=== PATIENT | male | born 1990 | race Caucasian/White ===

== ENCOUNTER → 2022-08-18 | Outpatient (CLI) | payer BC, SELFPAY ==
[2022-08-18 07:26] LABS: Absolute Lymphocyte Count 3.19 X10^3/uL (0.83-4.51); Absolute Neutrophil Count 4.1 X10^3/uL (2.0-7.7); Basophil# 0.04 X10^3/uL; Basophil% 0.5 % (0-1); Eosinophil# 0.29 X10^3/uL; Eosinophils% 3.5 % (0-5); Hematocrit 45.3 % (40-54); Hemoglobin 15.5 g/dL (13.0-16.5); Lymphocyte # 3.19 X10^3/ul (0.83-4.51); Lymphocyte % 38.7 % (19-41); Mean Corp Hgb Conc 34.2 g/dL (32-36); Mean Corpuscular Hgb 29.8 pg (27.0-32.0); Mean Corpuscular Volume 86.9 fL (80-94); Mean Platelet Vol. 10.2 fl (6.2-12.0); Monocyte# 0.66 X10^3/uL; NRBC Flagged by Analyzer 0 % (0-5); Neutrophil # 4.05 X10^3/uL (2.7-7.7); Neutrophil % 49.1 % (47-70); Platelet Count 246 K/mm3 (150-450); RBC Distribution Width CV 12.7 % (11.6-14.6); RBC Distribution Width SD 39.8 fl (35.1-43.9); Red Blood Count 5.21 M/mm3 (4.6-6.2); White Blood Count 8.3 K/mm3 (4.4-11.0)
[2022-08-18 07:54] LABS: ALB/GLOB Ratio 1.1 RATIO (0.9-2.4); AST(SGOT) 22 U/L (15-37); Alanine Aminotransfer ALT/SGPT 49 U/L (16-61); Albumin, Serum 3.8 g/dL (3.2-5.0); Alkaline Phosphatase 56 U/L (45-117); Anion Gap 7 (5-15); BUN 19 mg/dL (7-18); BUN/Creat Ratio 18.1 RATIO (10-20); Chloride 105 mmol/L (98-107); Cholesterol 266 mg/dL (200); Creatinine, Serum 1.05 mg/dL (0.70-1.30); EST Glomerular Filtration Rate 86 mL/min (>60); Est Glom Filt Rate - Afr Amer 104 mL/min (>60); Globulin 3.4 g/dL (2.2-4.2); Glucose 96 mg/dL (74-106); High Density Lipoprotein 37 mg/dL; Protein, Total 7.2 g/dL (6.4-8.2); Sodium Level 140 mmol/L (136-145); Thyroid Stim Hormone (TSH) 0.82 uIU/mL (0.358-3.74); Triglycerides 190 mg/dL; Very Low Density Lipoprotein 38 mg/dL (5-40)
== END | disposition home or self-care (01) ==
PROVIDERS: PCP Family Medicine; Referring Provider Family Medicine; Visit Provider Family Medicine
DX: E66.9 Obesity, unspecified (principal)
CPT/HCPCS: 36415; 80053; 80061; 84443; 85025

== ENCOUNTER → 2022-09-26 | Outpatient (CLI) | payer BC, SELFPAY ==
--- NOTE | 2022-09-26 13:47 | ECHOD_ITS ---
Version 2 Reason For Study: Congenital Heart Disease Procedure This was a 2D Doppler, Color Flow transthoracic echocardiogram. Exam performed in department. Left Ventricle Normal LV size. Small high muscular VSD noted. Left ventricular systolic function is normal. The estimated ejection fraction is 60 %. No regional wall motion abnormalities noted. Right Ventricle Normal RV size. Normal systolic function. Atria Normal left atrium. Normal right atrium. Mitral Valve Normal mitral valve. Tricuspid Valve Normal tricuspid valve. Mild tricuspid valve insufficiency. Pulmonary artery systolic pressure is 20 mmHg. Aortic Valve Trisinus/trileaflet aortic valve. Pulmonic Valve Normal pulmonic valve. Great Vessels Normal aortic root. The pulmonary artery is normal size. Normal inferior vena cava. Pericardium/Pleural No pericardial effusion. MMode/2D Measurements & Calculations LVIDd: 5.0 cm IVSd: 0.96 cm Ao root diam: 3.9 cm LVIDs: 3.3 cm LVPWd: 0.79 cm LA dimension: 3.8 cm RVDd: 4.1 cm FS: 33.7 % LAV(MOD-bp): 63.7 ml LA A4 area: 20.1 cm2 RA A4 area: 20.7 cm2 LAV(MOD-bp) Indexed: 26.4 ml/m2 LAV(MOD-sp2): 63.8 ml LAV(MOD-sp4): 51.0 ml Time Measurements MV dec time: 0.21 sec Doppler Measurements & Calculations MV E max luis: 60.4 cm/sec Lat Peak E' Luis: 16.9 cm/sec Med Peak E' Luis: 9.2 cm/sec MV A max luis: 47.9 cm/sec E/E' lat: 3.6 E/E' med: 6.5 MV E/A: 1.3 MV V2 max: 65.0 cm/sec MV dec slope: 294.1 cm/sec2 Ao V2 max: 106.6 cm/sec MV max P.7 mmHg Ao max P.5 mmHg MV V2 mean: 34.4 cm/sec Ao V2 mean: 73.9 cm/sec MV mean P.57 mmHg Ao mean P.5 mmHg MV V2 VTI: 19.7 cm Ao V2 VTI: 23.4 cm AV (velocity ratio): 0.67 LV V1 max: 73.3 cm/sec PA V2 max: 110.8 cm/sec TR max luis: 199.7 cm/sec LV V1 max P.1 mmHg TR max P.0 mmHg LV V1 mean P.2 mmHg LV V1 mean: 50.0 cm/sec LV V1 VTI: 15.5 cm ECHO/Echo Complete Interpretation Summary Normal LV size. Left ventricular systolic function is normal. The estimated ejection fraction is 60 %. Small high muscular VSD noted Unchanged from previous. Ordering Physician: Quentin Montano Referring Physician: Tavon Hendrix Performed By: Tyler Richard RCS
== END | disposition home or self-care (01) ==
LOC: CVS 13:46
PROVIDERS: PCP Family Medicine; Visit Provider Internal Medicine Cardiovascular Disease
DX: Q21.0 Ventricular septal defect (principal)
CPT/HCPCS: 93306

== ENCOUNTER → 2023-02-13 | Outpatient (CLI) | payer BC, SELFPAY ==
[2023-02-13 10:13] LABS: ALB/GLOB Ratio 1.1 RATIO (0.9-2.4); AST(SGOT) 23 U/L (15-37); Alanine Aminotransfer ALT/SGPT 59 U/L (16-61); Albumin, Serum 3.9 g/dL (3.2-5.0); Alkaline Phosphatase 64 U/L (45-117); Anion Gap 4 (5-15); BUN 10 mg/dL (7-18); BUN/Creat Ratio 8.6 RATIO (10-20); Calcium,Total 9.1 mg/dL (8.5-10.1); Chloride 106 mmol/L (98-107); Cholesterol 223 mg/dL (200); Creatinine, Serum 1.16 mg/dL (0.70-1.30); EST Glomerular Filtration Rate 76 mL/min (>60); Est Glom Filt Rate - Afr Amer 93 mL/min (>60); Globulin 3.7 g/dL (2.2-4.2); Glucose 114 mg/dL (74-106); High Density Lipoprotein 31 mg/dL; Potassium 4.3 mmol/L (3.5-5.1); Protein, Total 7.6 g/dL (6.4-8.2); Sodium Level 138 mmol/L (136-145); Triglycerides 234 mg/dL; Very Low Density Lipoprotein 47 mg/dL (5-40)
== END | disposition home or self-care (01) ==
PROVIDERS: PCP Family Medicine; Referring Provider Family Medicine; Visit Provider Family Medicine
DX: E78.5 Hyperlipidemia, unspecified (principal)
CPT/HCPCS: 36415; 80053; 80061

== ENCOUNTER → 2023-08-19 | Outpatient (CLI) | payer OTHER, SELFPAY ==
--- OUTSIDE RECORDS SUMMARY | 2023-05-22 07:49 | XMS RPT_ITS | CCD ---
Author Name Unknown Address [facility] [address] [place] [address] Organization [facility] Care Team Providers Care General Magistrate Name Role Phone Unavailable Primary Care Provider URMILA Le Referring Unavailable Medications Completed/Discontinued Medications Medication Drug Class(es) Dates Sig (Normalized) Sig (Original) rosuvastatin calcium 20 mg oral tablet (2 sources) HMG-CoA Reductase Inhibitor Start: 01-08-2023 take 2 tablets by mouth once rosuvastatin (CRESTOR) 20 mg tablet Take 2 tablets by mouth every afternoon. 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 Phone: [facility] Plan of Treatment Date Care Activity Detail Author Start: 03-13-2023 Covid-19 Vaccine ( season) Covid-19 Vaccine ( season) [facility] Start: 03-13-2023 Influenza vaccination Influenza Vacc ine (#1) [facility] Start: 07-13-2022 Depression Assessment Depression Ass essment [facility] Start: 10-04-2007 Urine microalbumin profile DTa P,Tdap,Td Vaccine (1 - Tdap) [facility] Start: 1990 Hepatitis B Vaccine (1 of 3 - 3-dose series) Hepatitis B Vaccine (1 of 3 - 3-dose series) [facility] Immunizations Immunization Date Immunization Notes Care Provider Partha phillips 07-27-2009 influenza virus vaccine, unspecified formulation Urmila Andrade APRN.CNP Work Phone: [facility] Payers Date Payer Category Payer Unknown [employer] BLUE CARD PPO OOS [id number] 2022-Present [phone] [address] [place] [address] PPO [id number] 2022 Unknown [id number] Social History Date Type Detail Facility Start: 04-21-2023 Tobacco smoking stat us MNIS Never smoked tobacco [facility] Start: 04-21-2023 Tobacco use and exposure Smoke less tobacco non-user [facility] Start: 04-21-2023 History of Social function [facility] Start: 04-21-2023 Tobacco use panel [facility] Start: 1990 Sex Assigned At Male [facility] Start: 04-21-2023 Gender identity Identifies as male gender (finding) [facility] Start: 04-21-2023 Sexual orientation Heterosexual (fin ding) [facility] Note 04-22-2023 Telephone Encounter - Lorna Franco - 04/22/2023 12:49 PM EDTTelephone Encounter - Urmila Andrade APRN.CNP - 04/22/2023 12:09 PM EDT Note Date & Type Note Facility 04-22-2023 Miscellaneous Notes Formattin g of this note might be different from the original. Patient given results and verbalized understanding of instructions given. Lorna Franco Gonorrhea chlamydia test negative. documented in this encounter [facility] Note 04-22-2023 Telephone Encounter - Lorna Franco - 04/22/2023 11:50 AM EDTTelephone Encounter - Urmila Andrade APRN.CNP - 04/22/2023 11:16 AM EDT Note Date & Type Note Facility 04-22-2023 Miscellaneous Notes Formattin g of this note might be different from the original. Patient given results and verbalized understanding of instructions given. Lorna Franco Syphilis HIV hepatitis test are negative. Gonorrhea chlamydia test still pending. Urmila Andrade APRN.CNP documented in this encounter [facility] Progress note 04-21-2023 Note Date & Type Note Facility 04-21-2023 Note HNO ID: [id number] Author: Urmila Andrade APRN.CNP Service: ? Author Type: Nurse Practitioner Type: Progress Notes Filed: 04/21/2023 4:16 PM Note Text: Subjective HPI Nontoxic-appearing male presents urgent care requesting STD testing. Patient states he is getting in a few weeks and would like tested for STDs prior to her wedding date. Patient states he has been sexually active but it has been about 8 years ago. Is currently asymptomatic. Denies history of STDs. Denies any testicular pain penile drainage scrotal tenderness rashes. Overall feels well. Past medical history prescription medication use allergies reviewed. .Patient presents with: STD Testing: Requesting testing to be safe, new sex partner History reviewed. No pertinent past medical history. History reviewed. No pertinent surgical history. ALLERGIES Patient has no known allergies. MEDICATIONS rosuvastatin (CRESTOR) 20 mg tablet Take 2 tablets by mouth every afternoon. History reviewed. No pertinent family history. Social History Tobacco Use Smoking status: Never Smokeless tobacco: Never BP 145/96 Pulse 73 Temp 36.6 ?C (97.8 ?F) Resp 18 Wt 127.3 kg (280 lb 9.6 oz) SpO2 98% Review of Systems Constitutional: Negative for chills, fever and malaise/fatigue. HENT: Negative for congestion, ear discharge, ear pain, sinus pain and sore throat. Eyes: Negative for blurred vision, pain, discharge and redness. Respiratory: Negative for cough, hemoptysis, sputum production, shortness of breath, wheezing and stridor. Cardiovascular: Negative for chest pain. Gastrointestinal: Negative for abdominal pain, diarrhea, nausea and vomiting. Genitourinary: Negative. Musculoskeletal: Negative for myalgias. Skin: Negative for itching and rash. Neurological: Negative for dizziness and headaches. Objective Physical Exam Constitutional: General: He is not in acute distress. Appearance: He is not toxic-appearing. HENT: Head: Normocephalic. Nose: Nose normal. Eyes: Pupils: Pupils are equal, round, and reactive to light. Cardiovascular: Rate and Rhythm: Normal rate. Pulmonary: Effort: Pulmonary effort is normal. No respiratory distress. Abdominal: Tenderness: There is no abdominal tenderness. There is no right CVA tenderness, left CVA tenderness or guarding. Genitourinary: Comments: Deferred exam Musculoskeletal: Cervical back: Normal range of motion. Skin: General: Skin is warm and dry. Neurological: General: No focal deficit present. Mental Status: He is alert. ASSESSMENT/PLAN: 1. Screening for STD (sexually transmitted disease) - ICD9: V74.5, ICD10: Z11.3 - GONORRHEA/CHLAMYDIA NAAT - SYPHILIS TOTAL W/REFLEX - HIV 1 2 COMBO(AG/AB),WITH REFLEX TO DIFFERENTIATION - HEPATITIS C ANTIBODY IA WITH CONFIRMATION - HEP B SURF AG SCRN STD panel obtained. Treat accordingly to test. Patient was educated on supportive therapies. Patient will follow up with primary care provider as needed. Patient was instructed to immediately proceed to emergency room for any new, worsening, or symptoms lasting longer than anticipated. The patient's clinical presentation is otherwise unremarkable at this time. Based on exam and clinical finding, the patient is stable for discharge. Plan of care was discussed with patient. Patient verbalizes understanding and agrees to plan of care. This note was generated using [employer] software. It may contain errors in wording, punctuation, or spelling. Urmila Andrade APRN.[facility] Summary Purpose Family History No Family History Records Found Advance Directives No Advanced Directives Records Found Additional Source Comments Source Comments (unrecognize d section and content) In the event this informatio n is protected by the Federal Confidentiality of Alcohol and Drug Abuse Patient Records regulations: The Federal rules restrict any use of the information to criminally investigate or prosecute any alcohol or drug abuse patient.[facility] Reason for Visit (unrecogniz ed section and content) (unrecognized sect ion and content) No Status Records Found INFORMATION SOURCE (unrecogn ized section and content) FOR RECORDS PERTAINING TO PATIENTS WHO ARE OR HAVE BEEN ENROLLED IN A CHEMICAL DEPENDENCY/SUBSTANCEABUSE PROGRAM, SOME INFORMATION MAY BE OMITTED. This clinical summary was aggregated from multiple sources. Caution should be exercised in using it in the provision of clinical care. This summary normalizes information from multiple sources, and as a consequence, information in this document may materially change the coding, format and clinical context of patient data. In addition, data may be omitted in some cases. CLINICAL DECISIONS SHOULD BE BASED ON THE PRIMARY CLINICAL RECORDS. [facility]. provides no warranty or guarantee of the accuracy or completeness of information in this document.
--- OUTSIDE RECORDS SUMMARY | 2023-08-19 09:07 | XMS RPT_ITS | CCD ---
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 Work Phone: [facility] Plan of Treatment Date Care Activity Detail Author Start: 03-13-2023 Covid-19 Vaccine ( season) Covid-19 Vaccine ( season) [facility] Start: 03-13-2023 Influenza vaccination Influenza Vacc ine (#1) [facility] Start: 07-13-2022 Depression Assessment Depression Ass essment [facility] Start: 10-04-2007 Urine microalbumin profile DTa P,Tdap,Td Vaccine (1 - Tdap) [facility] Start: 1990 Hepatitis B Vaccine (1 of 3 - 3-dose series) Hepatitis B Vaccine (1 of 3 - 3-dose series) [facility] Immunizations Immunization Date Immunization Notes Care Provider Partha phillips 07-27-2009 influenza virus vaccine, unspecified formulation Urmila Andrade APRN.CNP Work Phone: [facility] Payers Date Payer Category Payer Unknown MARIA ELENA BLUE CARD PPO OOS [id number] 2022-Present [phone] [address] [place] [address] PPO [id number] 2022 Unknown [id number] Social History Date Type Detail Facility Start: 04-21-2023 Tobacco smoking stat us MSIS Never smoked tobacco [facility] Start: 04-21-2023 Tobacco use and exposure Smoke less tobacco non-user [facility] Start: 04-21-2023 History of Social function [facility] Start: 04-21-2023 Tobacco use panel [facility] Start: 1990 Sex Assigned At Male [facility] Start: 04-21-2023 Gender identity Identifies as male gender (finding) [facility] Start: 04-21-2023 Sexual orientation Heterosexual (fin ding) [facility] Note 04-22-2023 Telephone Encounter - Lorna Franco - 04/22/2023 12:49 PM EDTTelephone Encounter - Urmila Andrade APRN.CNP - 04/22/2023 12:09 PM EDT Note Date & Type Note Facility 04-22-2023 Miscellaneous Notes Formattin g of this note might be different from the original. Patient given results and verbalized understanding of instructions given. Lorna Franco Gonorrhea chlamydia test negative. documented in this encounter [facility] Note 04-22-2023 Telephone Encounter - Lorna Franco [...] Urmila Andrade APRN.CNP documented in this encounter [facility] Progress note 04-21-2023 Note Date & Type Note Facility 04-21-2023 Note HNO ID: [id number] Author: Urmila Andrade APRN.CNP Service: ? Author [...] of care. This note was generated using [employer] software. It may contain errors in wording, punctuation, or spelling. Urmila Andrade APRN.[facility] Summary Purpose Family History No Family History [...] or prosecute any alcohol or drug abuse patient.[facility] Reason for Visit (unrecogniz ed section and [...] BE BASED ON THE PRIMARY CLINICAL RECORDS. [facility]. provides no warranty or guarantee of the accuracy or completeness of information in this document.
[2023-08-19 10:57] LABS: ALB/GLOB Ratio 1.3 RATIO (0.9-2.4); AST(SGOT) 26 U/L (15-37); Alanine Aminotransfer ALT/SGPT 62 U/L (16-61); Albumin, Serum 4.1 g/dL (3.2-5.0); Alkaline Phosphatase 56 U/L (45-117); Anion Gap 1 (5-15); BUN 20 mg/dL (7-18); Calcium,Total 9.3 mg/dL (8.5-10.1); Chloride 107 mmol/L (98-107); Cholesterol 198 mg/dL (200); Creatinine, Serum 1.11 mg/dL (0.70-1.30); EST Glomerular Filtration Rate 81 mL/min (>60); Est Glom Filt Rate - Afr Amer 98 mL/min (>60); Globulin 3.2 g/dL (2.2-4.2); Glucose 110 mg/dL (74-106); High Density Lipoprotein 39 mg/dL; Potassium 4.2 mmol/L (3.5-5.1); Protein, Total 7.3 g/dL (6.4-8.2); Sodium Level 137 mmol/L (136-145); Triglycerides 160 mg/dL; Very Low Density Lipoprotein 32 mg/dL (5-40)
[2023-08-19 11:38] LABS: Hemoglobin A1c 5.2 % (3.8-5.6)
== END | disposition home or self-care (01) ==
PROVIDERS: PCP Family Medicine; Referring Provider Family Medicine; Visit Provider Family Medicine
DX: E78.5 Hyperlipidemia, unspecified (principal); R73.9 Hyperglycemia, unspecified
CPT/HCPCS: 36415; 80053; 80061; 83036

== ENCOUNTER → 2024-04-07 | Outpatient (CLI) | payer BC, SELFPAY ==
[2024-04-07 07:01] LABS: Absolute Lymphocyte Count 3.03 X10^3/uL (0.83-4.51); Absolute Neutrophil Count 4.1 X10^3/uL (2.0-7.7); Basophil# 0.04 X10^3/uL; Basophil% 0.5 % (0-1); Eosinophil# 0.15 X10^3/uL; Eosinophils% 1.9 % (0-5); Hematocrit 43.4 % (40-54); Hemoglobin 14.5 g/dL (13.0-16.5); Lymphocyte # 3.03 X10^3/ul (0.83-4.51); Lymphocyte % 37.9 % (19-41); Mean Corp Hgb Conc 33.4 g/dL (32-36); Mean Corpuscular Hgb 28.5 pg (27.0-32.0); Mean Corpuscular Volume 85.3 fL (80-94); Mean Platelet Vol. 10.3 fl (6.2-12.0); Monocyte# 0.67 X10^3/uL; Monocyte% 8.4 % (0-10); NRBC Flagged by Analyzer 0 % (0-5); Neutrophil # 4.08 X10^3/uL (2.7-7.7); Platelet Count 209 K/mm3 (150-450); RBC Distribution Width CV 13.1 % (11.6-14.6); RBC Distribution Width SD 40.4 fl (35.1-43.9); Red Blood Count 5.09 M/mm3 (4.6-6.2)
[2024-04-07 07:36] LABS: ALB/GLOB Ratio 1.3 RATIO (0.9-2.4); AST(SGOT) 25 U/L (15-37); Alanine Aminotransfer ALT/SGPT 47 U/L (16-61); Albumin, Serum 3.9 g/dL (3.2-5.0); Alkaline Phosphatase 63 U/L (45-117); Anion Gap 4 (5-15); BUN 20 mg/dL (7-18); Calcium,Total 9.1 mg/dL (8.5-10.1); Chloride 107 mmol/L (98-107); Cholesterol 188 mg/dL (200); Creatinine, Serum 1.05 mg/dL (0.70-1.30); EST Glomerular Filtration Rate 85 mL/min (>60); Est Glom Filt Rate - Afr Amer 103 mL/min (>60); Globulin 3.1 g/dL (2.2-4.2); Glucose 102 mg/dL (74-106); High Density Lipoprotein 37 mg/dL; Sodium Level 140 mmol/L (136-145); Triglycerides 221 mg/dL; Very Low Density Lipoprotein 44 mg/dL (5-40)
[2024-04-07 08:55] LABS: Hemoglobin A1c 5.4 % (3.8-5.6)
== END | disposition home or self-care (01) ==
LOC: LAB 06:07
PROVIDERS: PCP Family Medicine; Referring Provider Family Medicine; Visit Provider Family Medicine
DX: E78.5 Hyperlipidemia, unspecified (principal); R73.09 Other abnormal glucose
CPT/HCPCS: 36415; 80053; 80061; 83036; 85025

== ENCOUNTER → 2024-10-04 | Outpatient (CLI) | payer OTHER, SELFPAY ==
[2024-10-04 12:21] LABS: Hemoglobin A1c 5.3 % (<=5.6)
[2024-10-04 15:00] LABS: Cholesterol 265 mg/dL (<=200); High Density Lipoprotein 36 mg/dL; Low Density Lipoprotein Calc. 178 mg/dL; Triglycerides 257 mg/dL; Very Low Density Lipoprotein 51 mg/dL (5-40); cholesterol:hdl ratio screen 7.38
[2024-10-04 15:04] LABS: ALB/GLOB Ratio 1.7 RATIO (0.9-2.4); AST(SGOT) 38 U/L (<=37); Alanine Aminotransfer ALT/SGPT 62 U/L (<=46); Albumin, Serum 4.3 g/dL (3.5-5.0); Alkaline Phosphatase 60 U/L (40-129); Anion Gap 10 (5-15); BUN 13 mg/dL (4-19); BUN/Creat Ratio 12.5 RATIO (10-20); Calcium,Total 9.4 mg/dL (7.6-11.0); Carbon Dioxide 26.3 mmol/L (21.0-32.0); Chloride 105 mmol/L (98-108); Creatinine, Serum 1.03 mg/dL (0.70-1.20); EST Glomerular Filtration Rate 97 (>60); Globulin 2.6 g/dL (2.2-4.2); Glucose 107 mg/dL (70-99); Potassium 4.4 mmol/L (3.3-5.1); Protein, Total 6.8 g/dL (5.9-8.4); Sodium Level 141 mmol/L (133-145); Total Bilirubin 0.52 mg/dL (0.00-1.30)
[2024-10-05 23:25] LABS: Hepatitis B Surface Antibody Nonreactive; Hepatitis B Surface Antigen Nonreactive (Nonreactive); Hepatitis C Antibody Nonreactive (Nonreactive)
== END | disposition home or self-care (01) ==
LOC: LAB 07:01
PROVIDERS: PCP Family Medicine; Referring Provider Family Medicine; Visit Provider Family Medicine
DX: E78.5 Hyperlipidemia, unspecified (principal); R73.09 Other abnormal glucose
CPT/HCPCS: 36415; 80053; 80061; 83036; 86706; 86803; 87340

== ENCOUNTER → 2025-03-16 | Outpatient (CLI) | payer OTHER, SELFPAY ==
[2025-03-16 09:25] LABS: Hematocrit 46.3 % (40-54); Hemoglobin 15.8 g/dL (13.0-16.5); Immature Granulocytes Count 0.020 X10^3/uL (0.0-0.0); Mean Corp Hgb Conc 34.1 g/dL (32-36); Mean Corpuscular Volume 84.5 fL (80-94); Mean Platelet Vol. 10.4 fl (6.2-12.0); NRBC Flagged by Analyzer 0 % (0-5); Platelet Count 224 K/mm3 (150-450); RBC Distribution Width CV 12.7 % (11.6-14.6); RBC Distribution Width SD 38.7 fl (35.1-43.9); Red Blood Count 5.48 M/mm3 (4.6-6.2); White Blood Count 7.7 K/mm3 (4.4-11.0)
[2025-03-16 11:09] LABS: AST(SGOT) 42 U/L (<=37); Alanine Aminotransfer ALT/SGPT 77 U/L (<=46); Albumin, Serum 4.5 g/dL (3.5-5.0); Alkaline Phosphatase 76 U/L (40-129); Anion Gap 13 (5-15); BUN 14 mg/dL (4-19); BUN/Creat Ratio 13.1 RATIO (10-20); Calcium,Total 9.6 mg/dL (7.6-11.0); Carbon Dioxide 23.2 mmol/L (21.0-32.0); Chloride 105 mmol/L (98-108); Cholesterol 219 mg/dL (<=200); Globulin 2.7 g/dL (2.2-4.2); Glucose 105 mg/dL (70-99); Hepatitis B Surface Antigen Nonreactive (Nonreactive); Hepatitis C Antibody Nonreactive (Nonreactive); Low Density Lipoprotein Calc. 145 mg/dL; Potassium 4.2 mmol/L (3.3-5.1); Triglycerides 189 mg/dL; Very Low Density Lipoprotein 38 mg/dL (5-40); cholesterol:hdl ratio screen 6.07
== END | disposition home or self-care (01) ==
LOC: LAB 08:41
PROVIDERS: PCP Family Medicine; Referring Provider Family Medicine; Visit Provider Family Medicine
DX: E78.5 Hyperlipidemia, unspecified (principal); R73.09 Other abnormal glucose
CPT/HCPCS: 36415; 80053; 80061; 83036; 85025; 86706; 86803; 87340

== ENCOUNTER → 2025-06-02 | Outpatient (CLI) | payer OTHER, SELFPAY ==
--- NOTE | 2025-06-02 07:18 | US_ITS ---
PROCEDURE: ABD LIMITED W/ ELASTOGRAPHY REASON FOR EXAM: ELEVATED LFT'S COMPARISON: None. TECHNIQUE: Procedure Code: [id number] Modality: US Procedure: ABD LIMITED W/ ELASTOGRAPHY Right upper quadrant abdominal ultrasound. [facility]ga Elast[facility] shear wave elastography for non-invasive assessment of liver tissue stiffness. Olga EPIQ Elite. FINDINGS: LIVER: Size: Borderline hepatomegaly. Length: 17.3 cm Echotexture: Diffusely echogenic suggesting fatty infiltration Contour: Normal Lesions: None identified Elastography: EQI Med: 6.9 kPa EQI Med Luis: 1.51 m/s IQR/Med: 9 %* GALLBLADDER: Normal COMMON BILE DUCT: Normal measuring 3.2 mm. . PANCREAS: Normal Visualized portions of the right kidney are unremarkable. No right upper quadrant ascites. US/ABD Limited w/ Elastography IMPRESSION: Mild to moderate hepatic fibrosis. Fatty infiltration of the liver. Borderline hepatomegaly. Reference Values: SRU <1.37 m/s (5.7kPa): No to mild fibrosis 1.37 m/s - 2.2 m/s: Moderate to severe fibrosis >2.2 m/s (15kPa): Significant fibrosis / cirrhosis METAVIR Score F2 or higher: 1.34 m/s (5.7kPa) F3 or higher: 1.55 m/s (7.3kPa) F4: 1.80 m/s (10kPa) * If the IQR/Med is >30%, the variance in the measurements is a large and the a ccuracy of the measurement may be in question. Reading Location: [facility]
--- OUTSIDE RECORDS SUMMARY | 2025-06-02 07:38 | XMS RPT_ITS | CCD ---
Author Organization [facility] Care Team Providers Care Head Of Maintenance Name Role Phone Dr. Tavon Hendrix Primary Care Provider Phyllis Mendoza Attending Provider Dr. Tavon Gonzalez Primary Care Provider Phyllis Mendoza Attending Provider Dr. Tavon Gonzalez Referring Provider Dr. Quentin Montano Attending Provider Unavailable Primary Care Provider UnavailURMILA Kirkpatrick Referring Unavailable Dr. Tavon Hendrix MD Primary Care Provider [phone] Dr. Tavon Hendrix MD Attending Provider Dr. Tavon Hendrix MD Referring Provider Dr. Tavon Hendrix MD Primary Care Physician Dr. Tavon Hendrix MD Attending Physician Dr. Tavon Hendrix MD Referring Provider Tavon Hendrix Referring Unavailable Tavon Hendrix Attending Unavailable Tavon Hendrix Primary Care Unavailable Tavon Hendrix Referring Unavailable Tavon Hendrix Attending Unavailable Tavon Hendrix Primary Care Unavailable Tavon Hendrix Referring Unavailable Tavon Hendrix Attending Unavailable Tavon Hendrix Primary Care Unavailable Tavon Hendrix Referring Unavailable Quentin Montano Attending Unavailable Tavon Hendrix Primary Care Unavailable Medications Current Medications Medication Drug Class(es) Dates Sig (Normalized) Sig (Original) atorvastatin 20 mg oral tablet (1 source) HMG-CoA Reductase Inhibitor Start: 05-22-2025 take 1 tablet by mouth at bedtime Completed/Discontinued Medications Medication Drug Class(es) Dates Sig (Normalized) Sig (Original) rosuvastatin calcium 20 mg oral tablet (10 sources) HMG-CoA Reductase Inhibitor Start: 10-02-2023 End: 12-01-2024 take 2 tablets by mouth once daily Rosuvastatin 20 mg tablet Discontinued 40 mg PO DAILY October 02, 2023 8:47am December 01, 2024 12:11pm Start: 01-08-2023 take 2 tablets by mouth once r osuvastatin (CRESTOR) 20 mg tablet Take 2 tablets by mouth every afternoon. 0 01/08/2023 Active Start: 08-29-2022 End: 10-02-2023 take 1 tablet by mouth once daily Rosuvastatin 20 mg tablet Discontinued 20 mg PO DAILY August 29, 2022 1:00am October 02, 2023 8:47am Comment on above: Take 2 tablets by mo uth every afternoon. 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) Ventricular septal defect; Translations: [Ventricular septal defect] 08-28-2022 Chronic Disorders of lipid metabolism (8 sources) Hyperlipidemia; Translations: [Hyperlipidemia, unspecified] Onset: 03-31-2025 08-29-2022 Chronic Immunizations and screening for infectious disease (1 source) Encounter for screening for infections with a predominantly sexual mode of transmission; Translations: [Screening for STD (sexually transmitted disease)] Onset: 04-21-2023 Episodic Other screening for suspected conditions (not mental disorders or infectious disease) (1 source) Other specified abnormal findings of blood chemistry; Translations: [Other specified abnormal findings of blood chemistry] Onset: 05-18-2025 Episodic Results Test Name Value Interpretation Reference Range Facil y Absolute lymphocyte countOrd ered By: Tavon Hendrix on 03-16-2025 Lymphocytes Auto (Unsp spec) [#/Vol] 2.73 10*3/uL 0.83-4.51 [facility] Absolute neutrophil countOrd ered By: Tavon Hendrix on 03-16-2025 Neutrophils (Bld) [#/Vol] 4.0 10*3/uL 2.0-7.7 [facility] Anion gap in Serum or Plasma Ordered By: Tavon Hendrix on 03-16-2025 Anion gap [Moles/Vol] 13 mmol/L 5-15 [facility] Automated lymphocyte count a s percentage of total leukocytesOrdered By: Tavon Hendrix on 03-16-2025 Lymphocytes/100 WBC Auto (Unsp spec) 35.3 % 19- [facility] BUN/creatinine ratioOrdered By: Tavon Hendrix on 03-16-2025 Urea nitrogen/Creatinine [Mass ratio] 13.1 mg/mg 10- [facility] Basophil percentageOrdered B y: Tavon Hendrix on 03-16-2025 Basophils/100 WBC (Bld) 0.8 % 0-1 [facility] Bilirubin, totalOrdered By: Tavon Hendrix on 03-16-2025 Bilirubin [Mass/Vol] 0.74 mg/dL 0.00-1.30 [facility] CBC W/Diff, Automatedon Absolute Lymph 2.73 X10 3/uL Normal 0.83-4.51 [facility] Comment on above: Order Comment: Order Date: 10/05/24 Order Info: [id number] - CBCD Performed By: #### L 100.0100, L500.4050, L500.4100, L501.9985 #### [facility] [address] [place], [address] Absolute Neut 4.0 X10 3/uL Normal 2.0-7.7 [facility] Comment on above: Order Comment: Order Date: 10/05/24 Order Info: [id number] - CBCD Performed By: #### L 100.0100, L500.4050, L500.4100, [id number] #### [facility] [address] [place], [address] Basophils/100 WBC (Bld) 0.8 % Normal 0-1 [facility] Comment on above: Order Comment: Order Date: 10/05/24 Order Info: [id number] - CBCD Performed By: #### L 100.0100, L500.4050, L500.4100, [id number] #### [facility] [address] [place], [address] Eosinophils/100 WBC (Bld) 4.1 % Normal 0-5 [facility] Comment on above: Order Comment: Order Date: 10/05/24 Order Info: [id number] - CBCD Performed By: #### L 100.0100, L500.4050, L500.4100, [id number] #### [facility] [address] [place], [address] Erythrocyte distribution width (RBC) [Ratio] 12.7 % Normal 11.6-14.6 [facility] Comment on above: Order Comment: Order Date: 10/05/24 Order Info: [id number] - CBCD Performed By: #### L 100.0100, L500.4050, L500.4100, [id number] #### [facility] [address] [place], [address] Hematocrit (Bld) [Volume fraction] 46.3 % Normal 40-54 [facility] Comment on above: Order Comment: Order Date: 10/05/24 Order Info: 0184-1 - CBCD Performed By: #### L 100.0100, L500.4050, L500.4100, [id number] #### [facility] [address] [place], [address] Hemoglobin (Bld) [Mass/Vol] 15.8 g/dL Normal 13.0-16.5 [facility] Comment on above: Order Comment: Order Date: 10/05/24 Order Info: 0184-1 - CBCD Performed By: #### L 100.0100, L500.4050, L500.4100, L501.9985 #### [facility] [address] [place], [address] IG% 0.300 Normal 0.0-0.9 [facility] Comment on above: Order Comment: Order Date: 10/05/24 Order Info: [id number] - CBCD Result Comment: IG% - Immature Granulocytes (promyelocytes, myelocytes and metamyelocytes) > 1% indicates that a LEFT SHIFT is Present. Performed By: #### L 100.0100, L500.4050, L500.4100, L501.9985 #### [facility] [address] [place], [address] Lymphocytes/100 WBC (Bld) 35.3 % Normal 19-41 [facility] Comment on above: Order Comment: Order Date: 10/05/24 Order Info: 0184-1 - CBCD Performed By: #### L 100.0100, L500.4050, L500.4100, [id number] #### [facility] [address] [place], [address] MCH (RBC) [Entitic mass] 28.8 pg Normal 27.0-32.0 [facility] Comment on above: Order Comment: Order Date: 10/05/24 Order Info: [id number]- - CBCD Performed By: #### L 100.0100, L500.4050, L500.4100, L501.9985 #### [facility] [address] [place], [address] MCHC (RBC) [Mass/Vol] 34.1 g/dL Normal 32-36 [facility] Comment on above: Order Comment: Order Date: 10/05/24 Order Info: [id number] - CBCD Performed By: #### L 100.0100, L500.4050, L500.4100, L501.9985 #### [facility] [address] [place], [address] MCV (RBC) [Entitic vol] 84.5 fL Normal 80-94 [facility] Comment on above: Order Comment: Order Date: 10/05/24 Order Info: 0184-1 - CBCD Performed By: #### L 100.0100, L500.4050, L500.4100, [id number] #### [facility] [address] [place], [address] Monocytes/100 WBC (Bld) 7.9 % Normal 0-10 [facility] Comment on above: Order Comment: Order Date: 10/05/24 Order Info: 0184-1 - CBCD Performed By: #### L 100.0100, L500.4050, L500.4100, L501.9985 #### [facility] [address] [place], [address] Neutrophils/100 WBC (Bld) 51.6 % Normal 47-70 [facility] Comment on above: Order Comment: Order Date: 10/05/24 Order Info: 0184-1 - CBCD Performed By: #### L 100.0100, L500.4050, L500.4100, L501.9985 #### [facility] [address] [place], [address] Nucleated RBC (Bld) [#/Vol] 0 10*3/uL Normal 0-5 [facility] Comment on above: Order Comment: Order Date: 10/05/24 Order Info: [id number] - CBCD Performed By: #### L 100.0100, L500.4050, L500.4100, L501.9985 #### [facility] [address] [place], [address] Platelet mean volume (Bld) [Entitic vol] 10.4 fL Normal 6.2-12.0 [facility] Comment on above: Order Comment: Order Date: 10/05/24 Order Info: [id number] - CBCD Performed By: #### L 100.0100, L500.4050, L500.4100, L501.9985 #### [facility] [address] [place], [address] Platelets (Bld) [#/Vol] 224 10*3/uL Normal 150-450 [facility] Comment on above: Order Comment: Order Date: 10/05/24 Order Info: [id number] - CBCD Performed By: #### L 100.0100, L500.4050, L500.4100, L501.9985 #### [facility] [address] [place], [address] RBC (Bld) [#/Vol] 5.48 10*6/uL Normal 4.6-6.2 [facility] Comment on above: Order Comment: Order Date: 10/05/24 Order Info: [id number] - CBCD Performed By: #### L 100.0100, L500.4050, L500.4100, L501.9985 #### [facility] [address] [place], [address] RDW SD 38.7 fl Normal 35.1-43.9 [facility] Comment on above: Order Comment: Order Date: 10/05/24 Order Info: [id number] - CBCD Performed By: #### L 100.0100, L500.4050, L500.4100, L501.9985 #### [facility] [address] [place], [address] WBC (Bld) [#/Vol] 7.7 10*3/uL Normal 4.4-11.0 [facility] Comment on above: Order Comment: Order Date: 10/05/24 Order Info: [id number] - CBCD Performed By: #### L 100.0100, L500.4050, L500.4100, L501.9985 #### [facility] [address] [place], [address] Calculated very low density lipoprotein (VLDL) cholesterol measurementOrdered By: Tavon Hendrix on 03-16-2025 Calculated very low density lipoprotein (VLDL) cholesterol measurement 38 mg/dL 5-40 [facility] Carbon dioxide, total [Moles /volume] in Central venous bloodOrdered By: Tavon Hendrix on 03-16-2025 CO2 [Moles/Vol] 23.2 mmol/L 21.0-32.0 [facility] Chloride assayOrdered By: Sylvie Hendrix on 03-16-2025 Chloride [Moles/Vol] 105 mmol/L 98-108 [facility] Comprehensive Metabolic Prof ilon 03-16-2025 Albumin [Mass/Vol] 4.5 g/dL Normal 3.5-5.0 [facility] Comment on above: Order Comment: Order Date: 10/05/24 Order Info: [id number] - CMP Order Info: [id number] - LIPID Performed By: #### L 100.0100, L500.4050, L500.4100, L501.9985 #### [facility] [address] [place], [address] Albumin/Globulin [Mass ratio] 1.7 {ratio} Normal 0.9-2.4 [facility] Comment on above: Order Comment: Order Date: 10/05/24 Order Info: [id number]- - CMP Order Info: [id number] - LIPID Performed By: #### L 100.0100, L500.4050, L500.4100, L501.9985 #### [facility] [address] [place], [place], [id number] ALK PHOS 76 U/L Normal 40-129 [facility] Comment on above: Order Comment: Order Date: 10/05/24 Order Info: [id number] - CMP Order Info: [id number] - LIPID Performed By: #### L 100.0100, L500.4050, L500.4100, L501.9985 #### [facility] [address] [place], [address] ALT [Catalytic activity/Vol] 77 U/L High <=46 [facility] Comment on above: Order Comment: Order Date: 10/05/24 Order Info: [id number] - CMP Order Info: [id number] - LIPID Performed By: #### L 100.0100, L500.4050, L500.4100, L501.9985 #### [facility] [address] [place], [address] AST [Catalytic activity/Vol] 42 U/L High <=37 [facility] Comment on above: Order Comment: Order Date: 10/05/24 Order Info: [id number] - CMP Order Info: [id number] - LIPID Performed By: #### L 100.0100, L500.4050, L500.4100, L501.9985 #### [facility] [address] [place], [address] Bilirubin [Mass/Vol] 0.74 mg/dL Normal 0.00-1.30 [facility] Comment on above: Order Comment: Order Date: 10/05/24 Order Info: [id number] - CMP Order Info: [id number] - LIPID Performed By: #### L 100.0100, L500.4050, L500.4100, L501.9985 #### [facility] [address] [place], [address] BUN/CRE 13.1 RATIO Normal 10-20 [facility] Comment on above: Order Comment: Order Date: 10/05/24 Order Info: [id number] - CMP Order Info: [id number] - LIPID Performed By: #### L 100.0100, L500.4050, L500.4100, L501.9985 #### [facility] [address] [place], [address] Calcium [Mass/Vol] 9.6 mg/dL Normal 7.6-11.0 [facility] Comment on above: Order Comment: Order Date: 10/05/24 Order Info: [id number] - CMP Order Info: [id number] - LIPID Performed By: #### L 100.0100, L500.4050, L500.4100, L501.9985 #### [facility] [address] [place], [address] Chloride [Moles/Vol] 105 mmol/L Normal 98-108 [facility] Comment on above: Order Comment: Order Date: 10/05/24 Order Info: [id number] - CMP Order Info: [id number] - LIPID Performed By: #### L 100.0100, L500.4050, L500.4100, L501.9985 #### [facility] [address] [place], [address] CO2 [Moles/Vol] 23.2 mmol/L Normal 21.0-32.0 [facility] Comment on above: Order Comment: Order Date: 10/05/24 Order Info: [id number] - CMP Order Info: [id number] - LIPID Performed By: #### L 100.0100, L500.4050, L500.4100, L501.9985 #### [facility] [address] [place], [place], [id number] Creatinine [Mass/Vol] 1.09 mg/dL Normal 0.70-1.20 [facility] Comment on above: Order Comment: Order Date: 10/05/24 Order Info: [id number] - CMP Order Info: [id number] - LIPID Performed By: #### L 100.0100, L500.4050, L500.4100, L501.9985 #### [facility] [address] [place], [address] GAP 13 Normal 5-15 [facility] Comment on above: Order Comment: Order Date: 10/05/24 Order Info: [id number] - CMP Order Info: [id number] - LIPID Performed By: #### L 100.0100, L500.4050, L500.4100, L501.9985 #### [facility] [address] [place], [address] GFR/1.73 sq M.predicted among non-blacks MDRD (S/P/Bld) [Vol rate/Area] 90 mL/min/{1.73_m2} Normal >60 [facility] Comment on above: Order Comment: Order Date: 10/05/24 Order Info: [id number] - CMP Order Info: [id number] - LIPID Result Comment: mL/m in/1.73m2 CKD-EPI Creatinine Equation (2020) Performed By: #### L 100.0100, L500.4050, L500.4100, L501.9985 #### [facility] [address] [place], [address] Globulin (S) [Mass/Vol] 2.7 g/dL Normal 2.2-4.2 [facility] Comment on above: Order Comment: Order Date: 10/05/24 Order Info: 0786- - CMP Order Info: [id number] - LIPID Performed By: #### L 100.0100, L500.4050, L500.4100, L501.9985 #### [facility] [address] [place], [address] Glucose [Mass/Vol] 105 mg/dL High 70-99 [facility] Comment on above: Order Comment: Order Date: 10/05/24 Order Info: [id number] - CMP Order Info: [id number] - LIPID Performed By: #### L 100.0100, L500.4050, L500.4100, L501.9985 #### [facility] [address] [place], [address] Potassium [Moles/Vol] 4.2 mmol/L Normal 3.3-5.1 [facility] Comment on above: Order Comment: Order Date: 10/05/24 Order Info: [id number] - CMP Order Info: [id number] - LIPID Performed By: #### L 100.0100, L500.4050, L500.4100, L501.9985 #### [facility] [address] [place], [address] Sodium [Moles/Vol] 141 mmol/L Normal 133-145 [facility] Comment on above: Order Comment: Order Date: 10/05/24 Order Info: [id number] - CMP Order Info: [id number] - LIPID Performed By: #### L 100.0100, L500.4050, L500.4100, L501.9985 #### [facility] [address] [place], [place], [id number] T PROT 7.2 g/dL Normal 5.9-8.4 [facility] Comment on above: Order Comment: Order Date: 10/05/24 Order Info: [id number] - CMP Order Info: [id number] - LIPID Performed By: #### L 100.0100, L500.4050, L500.4100, L501.9985 #### [facility] [address] [place], [place], [id number] Urea nitrogen [Mass/Vol] 14 mg/dL Normal 4-19 [facility] Comment on above: Order Comment: Order Date: 10/05/24 Order Info: [id number] - CMP Order Info: [id number] - LIPID Performed By: #### L 100.0100, L500.4050, L500.4100, L501.9985 #### [facility] [address] [place], [place], [id number] Eosinophil percentageOrdered By: Tavon Hendrix on 03-16-2025 Eosinophils/100 WBC (Bld) 4.1 % 0-5 [facility] Erythrocyte distribution wid th ratioOrdered By: Tavon Hendrix on 03-16-2025 Erythrocyte distribution width (RBC) [Ratio] 12.7 % 11.6-14.6 [facility] Erythrocyte distribution wid th standard deviationOrdered By: Tavon Hendrix on 03-16-2025 Erythrocyte distribution width (RBC) [Ratio] 38.7 fl 35.1-43.9 [facility] Glomerular filtration rate ( GFR) estimation/1.73 sq m using serum, plasma, or whole bOrdered By: Tavon Hendrix on 03-16-2025 GFR/1.73 sq M.predicted among non-blacks MDRD (S/P/Bld) [Vol rate/Area] 90 mL/min/{1.73_m2} >60 [facility] Comment on above: mL/min/1.73m2 CKD-EP I Creatinine Equation (2020) Hematocrit Auto (Bld) [Volum e fraction]Ordered By: Tavon Hendrix on 03-16-2025 Hematocrit (Bld) [Volume fraction] 46.3 % 40-54 [facility] Hemoglobin A1con 03-16-2025 HbA1c (Bld) [Mass fraction] 5.6 % Normal <=5.6 [facility] Comment on above: Order Comment: Order Date: 10/05/24 Order Info: [id number] - A1C Result Comment: Norm al < 5.7 % Prediabetic 5.7 - 6.4 % Diabetic >or= 6.5 % Please note range changes. Performed By: #### L 100.0100, L500.4050, L500.4100, L501.7085 #### [facility] [address] [place], [address] Hemoglobin A1c percentageOrd ered By: Tavon Hendrix on 03-16-2025 HbA1c (Bld) [Mass fraction] 5.6 % <5.7 [facility] Comment on above: Normal < 5.7 % Predi abetic 5.7 - 6.4 % Diabetic >or= 6.5 % Please note range changes. Hemoglobin measurementOrdere d By: Tavon Hendrix on 03-16-2025 Hemoglobin (Bld) [Mass/Vol] 15.8 g/dL 13.0-16.5 [facility] Hepatitis B Surface Antibody on 03-16-2025 HEP B Surf Ab Non-Reactive Normal [facility] Comment on above: Result Comment: <8.5 mIU/mL: Non-Reactive 8.5<= x <11.5 mIU/mL: Indeterminate >=11.5 mIU/mL: Reactive Non Reactive: Inconsistent with immunity less than <10 mIU/mL Reactive: Consistent with immunity greater than or equal to 10 mIU/mL Performed By: #### L 500.4050, L500.4100 #### [facility] [address] [place], [address] Hepatitis C Antibodyon 03-16 Hepatitis C Ab Non-Reactive Normal Nonreactive [facility] Comment on above: Order Comment: Order Date: 04/07/24 Order Info: [id number] - CMP Order Info: [id number] - LIPID Result Comment: Reac tive: Presumptive evidence of antibodies to HCV. Follow CDC recommendations for supplemental testing. Non-Reactive: Antibodies to HCV were not detected; does not exclude the possibility of exposure to HCV Reactive Results are presumptive evidence of antibodies to HCV. Follow CDC recommendations for supplemental testing. Order confirmation testing: HCV Quant by PCR testing - HCVPCR #[id number] Non Reactive: < 0.8 Equivocal: >/= 0.8 to < 1.0 Reactive: >/= 1.0 The [facility] requires that a reactive/equivocal HCV antibody result be sent out for confirmation. HCV Quant by PCR testing. Performed By: #### L 500.4050, L500.4100 #### [facility] [address] [place], [address] Immature granulocytes/100 WB C Auto (Bld)Ordered By: Tavon Hendrix on 03-16-2025 Immature granulocytes/100 WBC (Bld) 0.300 % 0.0-0.9 [facility] Comment on above: IG% - Immature Granu locytes (promyelocytes, myelocytes and metamyelocytes) > 1% indicates that a LEFT SHIFT is Present. [id number] 03-16-2025 HEP B Surf Ag Non-Reactive Normal Nonreactive [facility] Comment on above: Order Comment: Order Date: 04/07/24 Order Info: [id number] - CMP Order Info: [id number] - LIPID Result Comment: Reac tive: Presumptive evidence of HBV. Repeatedly reactive samples must be confirmed using a neutralization test ([employer] HBsAg Confirmatory Test) Non-Reactive: HBsAg not detected; does not exclude the possibility of exposure to HBV Performed By: #### L 500.4050, L500.4100 #### [facility] [address] [place], [place], [id number] LDL calc ser/plasOrdered By: Tavon Hendrix on 03-16-2025 Cholesterol in LDL [Mass/Vol] 145 mg/dL [facility] Comment on above: Icxaxcivry=517-723 m g/dL & Higher Atfy=081 mg/dL or greaterFriedwald Equation for LDL-C Laboratory - Chemistry and C hemistry - challengeOrdered By: Tavon Hendrix on 03-16-2025 AST [Catalytic activity/Vol] 42 U/L High <38 [facility] - Microbiology an d Antimicrobial susceptibilityOrdered By: Tavon Hendrix on 03-16-2025 HBV surface Ag Ql (S) Non-Reactive Nonreactive [facility] Comment on above: Reactive: Presumptiv e evidence of HBV. Repeatedly reactive samples must be confirmed using a neutralization test ([employer] HBsAg Confirmatory Test)Non-Reactive: HBsAg not detected; does not exclude the possibility of exposure to HBV Lipid Profileon 03-16-2025 CHOL:HDL 6.07 Normal [facility] Comment on above: Order Comment: Order Date: 04/07/24 Order Info: [id number] - CMP Order Info: [id number] - LIPID Performed By: #### L 500.4050, L500.4100 #### [facility] [address] [place], [address] Cholesterol [Mass/Vol] 219 mg/dL High <=200 [facility] Comment on above: Order Comment: Order Date: 04/07/24 Order Info: 0786-1 - CMP Order Info: [id number] - LIPID Result Comment: Chol esterol level, Desirable <200 mg/dL Borderline high cholesterol 200-239 mg/dL High cholesterol >=240 mg/dL Recommendations of the NCEP Adult Treatment Panel for the following risk-cutoff thresholds for the [place] population. Performed By: #### L 500.4050, L500.4100 #### [facility] [address] [facility] [place], [address] Cholesterol in HDL [Mass/Vol] 36 mg/dL Low [facility] Comment on above: Order Comment: Order Date: 04/07/24 Order Info: 0786-1 - CMP Order Info: [id number] - LIPID Result Comment: Dian onal Cholesterol Education Program (NCEP) guidelines: <40 mg/dL: Low HDL-cholesterol (major risk factor for CHD) >= 60 mg/dL: High HDL-cholesterol (negative risk factor for CHD) HDL-cholesterol is affected by a number of factors, e.g. smoking, exercise, hormones, sex and age. Performed By: #### L 500.4050, L500.4100 #### [facility] [address] [place], [address] Cholesterol in LDL [Mass/Vol] 145 mg/dL Normal [facility] Comment on above: Order Comment: Order Date: 04/07/24 Order Info: 0786-1 - CMP Order Info: [id number] - LIPID Result Comment: Bord ayhbip=741-611 mg/dL Higher Ujjw=186 mg/dL or greater Friedwald Equation for LDL-C Performed By: #### L 500.4050, L500.4100 #### [facility] [address] [place], [address] Cholesterol in VLDL [Mass/Vol] 38 mg/dL Normal 5-40 [facility] Comment on above: Order Comment: Order Date: 04/07/24 Order Info: 0786-1 - CMP Order Info: [id number] - LIPID Performed By: #### L 500.4050, L500.4100 #### [facility] [address] [place], [address] Triglyceride [Mass/Vol] 189 mg/dL Normal [facility] Comment on above: Order Comment: Order Date: 04/07/24 Order Info: [id number] - CMP Order Info: [id number] - LIPID Result Comment: The drugs N-Acetylcysteine and Metamizole may falsely depress this assay. Normal range: <150 mg/dL Borderline High: 150-199 mg/dL High: 200-499 mg/dL Very High: >500 mg/dL Performed By: #### L 500.4050, L500.4100 #### [facility] [address] [place], [address] MCV (mean corpuscular volume ) determinationOrdered By: Tavon Hendrix on 03-16-2025 MCV (RBC) [Entitic vol] 84.5 fL 80-94 [facility] Mean corpuscular hemoglobin (MCH) determinationOrdered By: Tavon Hendrix on 03-16-2025 MCH (RBC) [Entitic mass] 28.8 pg 27.0-32.0 [facility] Mean corpuscular hemoglobin concentration (MCHC) determinationOrdered By: Tavon Hendrix on 03-16-2025 MCHC (RBC) [Mass/Vol] 34.1 g/dL 32-36 [facility] Mean platelet volume determi nationOrdered By: Tavon Hendrix on 03-16-2025 Platelet mean volume (Bld) [Entitic vol] 10.4 fL 6.2-12.0 [facility] Monocyte percentageOrdered B y: Tavon Hendrix on 03-16-2025 Monocytes/100 WBC (Bld) 7.9 % 0-10 [facility] Neutrophil percentageOrdered By: Tavon Hendrix on 03-16-2025 Neutrophils/100 WBC (Bld) 51.6 % 47-70 [facility] Nucleated red blood cell per centageOrdered By: Tavon Hendrix on 03-16-2025 Nucleated RBC/100 WBC (Bld) [Ratio] 0 % 0-5 [facility] Platelet countOrdered By: Sylvie Hendrix on 03-16-2025 Platelets (Bld) [#/Vol] 224 10*3/uL 150-450 [facility] Potassium measurement (mass/ volume)Ordered By: Tavon Hendrix on 03-16-2025 Potassium (Unsp spec) [Mass/Vol] 4.2 mmol/L 3.3-5.1 [facility] RBC Auto (Bld) [#/Vol]Ordere d By: Tavon Hendrix on 03-16-2025 RBC (Bld) [#/Vol] 5.48 10*6/uL 4.6-6.2 [facility] Screening total cholesterol/ high density lipoprotein (HDL) cholesterol ratioOrdered By: Tavon Hendrix on 03-16-2025 Cholesterol.total/Choles terol in HDL [Mass ratio] 6.07 {ratio} [facility] Serum creatinine measurement (mass/volume)Ordered By: Tavon Hendrix on 03-16-2025 Creatinine [Mass/Vol] 1.09 mg/dL 0.70-1.20 [facility] Serum globulin measurementOr dered By: Tavon Hendrix on 03-16-2025 Globulin (S) [Mass/Vol] 2.7 g/dL 2.2-4.2 [facility] Serum glucose measurement (m ass/volume)Ordered By: Tavon Hendrix on 03-16-2025 Glucose [Mass/Vol] 105 mg/dL High 70-99 [facility] Serum hepatitis B virus surf sendy antibody detectionOrdered By: Tavon Hendrix on 03-16-2025 HBV surface Ab Ql (S) Non-Reactive [facility] Comment on above: <8.5 mIU/mL: Non-Maria Elena ctive8.5<= x <11.5 mIU/mL: Indeterminate>=11.5 mIU/mL: Reactive Non Reactive: Inconsistent with immunity less than <10 mIU/mL Reactive: Consistent with immunity greater than or equal to 10 mIU/mL Serum or plasma alanine otto otransferase (ALT) measurementOrdered By: Tavon Hendrix on 03-16-2025 ALT [Catalytic activity/Vol] 77 U/L High <47 [facility] Serum or plasma albumin shayne urement (mass/volume)Ordered By: Tavon Hendrix on 03-16-2025 Albumin [Mass/Vol] 4.5 g/dL 3.5-5.0 [facility] Serum or plasma albumin/glob ulin mass ratioOrdered By: Tavon Hendrix on 03-16-2025 Albumin/Globulin [Mass ratio] 1.7 {ratio} 0.9-2.4 [facility] Serum or plasma alkaline saeid sphatase measurementOrdered By: Tavon Hendrix on 03-16-2025 ALP [Catalytic activity/Vol] 76 U/L 40-129 [facility] Serum or plasma calcium shayne urement (mass/volume)Ordered By: Tavon Hendrix on 03-16-2025 Calcium [Mass/Vol] 9.6 mg/dL 7.6-11.0 [facility] Serum or plasma cholesterol in HDL measurement (mass/volume)Ordered By: Tavon Hendrix on 03-16-2025 Cholesterol in HDL [Mass/Vol] 36 mg/dL Low >40 [facility] Comment on above: National Cholesterol Education Program (NCEP) guidelines:<40 mg/dL: Low HDL-cholesterol (major risk factor for CHD)>= 60 mg/dL: High HDL-cholesterol (negative risk factor for CHD)HDL-cholesterol is affected by a number of factors, e.g. smoking, exercise, hormones, sex and age. Serum or plasma cholesterol measurement (mass/volume)Ordered By: Tavon Hendrix on 03-16-2025 Cholesterol [Mass/Vol] 219 mg/dL High <201 [facility] Comment on above: Cholesterol level, D esirable <200 mg/dLBorderline high cholesterol 200-239 mg/dLHigh cholesterol >=240 mg/dLRecommendations of the NCEP Adult Treatment Panel for the following risk-cutoff thresholds for the [place] population. Serum or plasma urea nitroge n measurement (mass/volume)Ordered By: Tavon Hendrix on 03-16-2025 Urea nitrogen [Mass/Vol] 14 mg/dL 4-19 [facility] Sodium levelOrdered By: Tavon Hendrix on 03-16-2025 Sodium [Moles/Vol] 141 mmol/L 133-145 [facility] Total proteinOrdered By: Matt Hendrix on 03-16-2025 Protein [Mass/Vol] 7.2 g/dL 5.9-8.4 [facility] Triglycerides measurementOrd ered By: Tavon Hendrix on 03-16-2025 Triglyceride [Mass/Vol] 189 mg/dL <199 [facility] Comment on above: The drugs N-Acetylcy steine and Metamizole may falsely depress this assay. Normal range: <150 mg/dLBorderline High: 150-199 mg/dLHigh: 200-499 mg/dLVery High: >500 mg/dL White blood cell (WBC) count Ordered By: Tavon Hendrix on 03-16-2025 WBC (Bld) [#/Vol] 7.7 10*3/uL 4.4-11.0 [facility] Cardiology Visit Reporton Cardiology Visit Report [facility] [address] [place] [address] OFFICE VISIT Date of Service: 12/01/24 MR#: [id number] Acct: [id number] Name: SISSY STEEN Rep #: [id number] : 1990 Provider: Dr. Quentin Montano MD Age/Sex: 34/M Location[place] [facility] Status: Signed HPI HPI History of Present Illness Details: This is a 34-year-old man who presents to the office today for a cardiovascular follow up visit. He has a family history of premature coronary artery disease who is here for evaluation of a possible congenital heart disease. He says that he was told as a child that he did have a ventricular septal defect. He has not had any medical attention recently but did see you in the office and was referred here for further evaluation and management. His echocardiogram from September of 2022 demonstrated an ejection fraction of 60%, and small high muscular VSD noted Unchanged from previous. From a cardiac standpoint, the patient is doing well. He denies any palpitations, chest pain, pressure or heaviness. He denies SOB, Orthopnea, and PND. He does not have bleeding issues; no blood in urine, stool or nosebleeds. He denies any decrease in energy level, myalgias, or claudication. He does not have edema, or sudden weight gain. He denies dizziness, lightheadedness, syncopal or near syncopal episodes, and headaches. He states that he does work out 2-3x a week. 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[employer] Required: No Accompanied by: Self Is patient in pain?: No Allergies No Known Allergies Allergy (Unverified 12/01/24 12:11) Medications ???Medication ???Instructions ???Recorded ???Confirmed ???Type atorvastatin 20 mg tablet (Lipitor) 20 mg PO QHS 12/01/24 12/01/24 History PFSH Medical History IgG deficiency VSD (ventricular septal defect) Surgical History History of tonsillectomy and adenoidectomy Family History Father CAD (coronary artery disease), Onset Age: 51 CABG X 3 Grandfather CAD (coronary artery disease) CABG Hypertension Grandmother Heart disease Other Cardiac disease Social History Smoking Status: Never smoker alcohol intake: current alcohol intake frequency: holidays/special occasions only substance use type: does not use caffeine: Yes Type: carbonated beverages Number of servings: 1, coffee Number of servings: 2 and tea ROS Const Const: Negative for fatigue, weakness, headache(s), daytime sleepiness or difficulty sleeping ENT ENT: Negative for headache(s), dizziness or Nosebleed/epistaxis Cardio Chest Pain: No Palpitations: No Edema: None Resp Respiratory: Negative for SOB with activity, SOB at rest, SOB orthopnea SOB lying down or Cough GI GI: Negative nausea, vomiting or heartburn Neuro Neuro: Negative for dizziness, lightheadedness, near syncope, headache(s) or weakness Endo Endo: Negative for fatigue Supplemental Info Supplemental Information Echocardiogram 09/26/2022: Interpretation Summary Normal LV size. Left ventricular systolic function is normal. The estimated ejection fraction is 60 %. Small high muscular VSD noted Unchanged from previous. Labs: LDL Cholesterol 107 mg/dL (0-130) HDL Cholesterol 36 mg/dL (40-) L Cholesterol 265 mg/dL (<=200) H Triglycerides 257 mg/dL (-199) H Diagnostics: Electrocardiogram Echocardiogram Pulmonary: No Data to Display Past Visits: Cardiology Visit 12/01/24 Assessment and Plan Assessment and Plan (1) VSD (ventricular septal defect): Status: Acute Plan: Patient has a history of ventricular septal defect. His echocardiogram 09/26/2022 demonstrated an ejection fraction of 60%, and small high muscular VSD noted, unchanged from previous. This was revi ewed with him. He appears stable at this time, and denies any recent symptoms or events. We will continue to monitor this with history, exam, and echocardiograms as deemed appropriate. (2) Hyperlipemia: Status: Acute Plan: Patient has a history of hyperlipidemia. His PCP monitors this. His most recent lipid panel from 08/19/23: cholesterol 198, HDL 39, LDL 127, triglycerides 160. He will continue rosuvastatin 40mg daily, along with aggressive risk factor and lifestyle modifications. Plan Details Additional Comments: Patient will follow up in 24 months, or sooner if needed. Thank you (more content not included)... Normal [facility] L3890.6102on 10-05-2024 HEP B Surf Ag Non-Reactive Normal Nonreactive [facility] Comment on above: Order Comment: ADD O N HEP B AB AG, HEP C ON 10-04 Result Comment: Reac tive: Presumptive evidence of HBV. Repeatedly reactive samples must be confirmed using a neutralization test ([employer] HBsAg Confirmatory Test) Non-Reactive: HBsAg not detected; does not exclude the possibility of exposure to HBV Performed By: #### L 3890.6102, L3890.6301, L3890.6202 #### [facility] [address] [place], [place], [id number] L3890.6202on 10-05-2024 HEP B Surf Ab Non-Reactive Normal [facility] Comment on above: Order Comment: ADD O N HEP B AB AG, HEP C ON 10-04 Result Comment: <8.5 mIU/mL: Non-Reactive 8.5<= x <11.5 mIU/mL: Indeterminate >=11.5 mIU/mL: Reactive Non Reactive: Inconsistent with immunity less than <10 mIU/mL Reactive: Consistent with immunity greater than or equal to 10 mIU/mL Performed By: #### L 3890.6102, L3890.6301, L3890.6202 #### [facility] [address] [place], [place], [address] L3890.6301on 10-05-2024 Hepatitis C Ab Non-Reactive Normal Nonreactive [facility] Comment on above: Order Comment: ADD O N HEP B AB AG, HEP C ON 10-04 Result Comment: Reac tive: Presumptive evidence of antibodies to HCV. Follow CDC recommendations for supplemental testing. Non-Reactive: Antibodies to HCV were not detected; does not exclude the possibility of exposure to HCV Reactive Results are presumptive evidence of antibodies to HCV. Follow CDC recommendations for supplemental testing. Order confirmation testing: HCV Quant by PCR testing - HCVPCR #[id number] Non Reactive: < 0.8 Equivocal: >/= 0.8 to < 1.0 Reactive: >/= 1.0 The CDC requires that a reactive/equivocal HCV antibody result be sent out for confirmation. HCV Quant by PCR testing. Performed By: #### L 3890.6102, L3890.6301, L3890.6202 #### [facility] [address] [place], [address] Anion gap in Serum or Plasma Ordered By: Tavon Hendrix on 10-04-2024 Anion gap [Moles/Vol] 10 mmol/L 5-15 [facility] BUN/creatinine ratioOrdered By: Tavon Hendrix on 10-04-2024 Urea nitrogen/Creatinine [Mass ratio] 12.5 mg/mg 10-20 [facility] Bilirubin, totalOrdered By: Tavon Hendrix on 10-04-2024 Bilirubin [Mass/Vol] 0.52 mg/dL 0.00-1.30 [facility] Calculated very low density lipoprotein (VLDL) cholesterol measurementOrdered By: Tavon Hendrix on 10-04-2024 VLDL Cholesterol 51 mg/dL High 5-40 [facility] Carbon dioxide, total [Moles /volume] in Central venous bloodOrdered By: Tavon Hendrix on 10-04-2024 CO2 [Moles/Vol] 26.3 mmol/L 21.0-32.0 [facility] Chloride assayOrdered By: Sylvie Hendrix on 10-04-2024 Chloride [Moles/Vol] 105 mmol/L 98-108 [facility] Comprehensive Metabolic Prof ilon 10-04-2024 Albumin [Mass/Vol] 4.3 g/dL Normal 3.5-5.0 [facility] Comment on above: Order Comment: Order Date: 04/07/24 Order Info: [id number] - CMP Order Info: [id number] - LIPID Performed By: #### L 500.4050, L500.4100 #### [facility] [address] [place], [place], [id number] Albumin/Globulin [Mass ratio] 1.7 {ratio} Normal 0.9-2.4 [facility] Comment on above: Order Comment: Order Date: 04/07/24 Order Info: [id number] - CMP Order Info: [id number] - LIPID Performed By: #### L 500.4050, L500.4100 #### [facility] [address] [place], [address] ALK PHOS 60 U/L Normal 40-129 [facility] Comment on above: Order Comment: Order Date: 04/07/24 Order Info: [id number] - CMP Order Info: [id number] - LIPID Performed By: #### L 500.4050, L500.4100 #### [facility] [address] [place], [address] ALT [Catalytic activity/Vol] 62 U/L High <=46 [facility] Comment on above: Order Comment: Order Date: 04/07/24 Order Info: 07- - CMP Order Info: [id number] - LIPID Performed By: #### L 500.4050, L500.4100 #### [facility] [address] [place], [address] AST [Catalytic activity/Vol] 38 U/L Normal <=37 [facility] Comment on above: Order Comment: Order Date: 04/07/24 Order Info: [id number]- - CMP Order Info: [id number] - LIPID Result Comment: Hemo lysis present, Results??could be affected. ?? Performed By: #### L 500.4050, L500.4100 #### [facility] [address] [place], [address] Bilirubin [Mass/Vol] 0.52 mg/dL Normal 0.00-1.30 [facility] Comment on above: Order Comment: Order Date: 04/07/24 Order Info: [id number] - CMP Order Info: [id number] - LIPID Performed By: #### L 500.4050, L500.4100 #### [facility] [address] [place], [address] BUN/CRE 12.5 RATIO Normal 10-20 [facility] Comment on above: Order Comment: Order Date: 04/07/24 Order Info: [id number] - CMP Order Info: [id number] - LIPID Performed By: #### L 500.4050, L500.4100 #### [facility] [address] [place], [address] Calcium [Mass/Vol] 9.4 mg/dL Normal 7.6-11.0 [facility] Comment on above: Order Comment: Order Date: 04/07/24 Order Info: [id number] - CMP Order Info: [id number] - LIPID Performed By: #### L 500.4050, L500.4100 #### [facility] [address] [place], [address] Chloride [Moles/Vol] 105 mmol/L Normal 98-108 [facility] Comment on above: Order Comment: Order Date: 04/07/24 Order Info: [id number] - CMP Order Info: [id number] - LIPID Performed By: #### L 500.4050, L500.4100 #### [facility] [address] [place], [address] CO2 [Moles/Vol] 26.3 mmol/L Normal 21.0-32.0 [facility] Comment on above: Order Comment: Order Date: 04/07/24 Order Info: 0786-1 - CMP Order Info: [id number] - LIPID Performed By: #### L 500.4050, L500.4100 #### [facility] [address] [place], [address] Creatinine [Mass/Vol] 1.03 mg/dL Normal 0.70-1.20 [facility] Comment on above: Order Comment: Order Date: 04/07/24 Order Info: [id number] - CMP Order Info: [id number] - LIPID Performed By: #### L 500.4050, L500.4100 #### [facility] [address] [place], [address] GAP 10 Normal 5-15 [facility] Comment on above: Order Comment: Order Date: 04/07/24 Order Info: 0786 - CMP Order Info: [id number] - LIPID Performed By: #### L 500.4050, L500.4100 #### [facility] [address] [place], [address] GFR/1.73 sq M.predicted among non-blacks MDRD (S/P/Bld) [Vol rate/Area] 97 mL/min/{1.73_m2} Normal >60 [facility] Comment on above: Order Comment: Order Date: 04/07/24 Order Info: [id number] - CMP Order Info: [id number] - LIPID Result Comment: mL/m in/1.73m2 CKD-EPI Creatinine Equation (2020) Performed By: #### L 500.4050, L500.4100 #### [facility] [address] [place], [address] Globulin (S) [Mass/Vol] 2.6 g/dL Normal 2.2-4.2 [facility] Comment on above: Order Comment: Order Date: 04/07/24 Order Info: 0786 - CMP Order Info: [id number] - LIPID Performed By: #### L 500.4050, L500.4100 #### [facility] [address] [place], [address] Glucose [Mass/Vol] 107 mg/dL High 70-99 [facility] Comment on above: Order Comment: Order Date: 04/07/24 Order Info: 0786 - CMP Order Info: [id number] - LIPID Performed By: #### L 500.4050, L500.4100 #### [facility] [address] [place], [address] Potassium [Moles/Vol] 4.4 mmol/L Normal 3.3-5.1 [facility] Comment on above: Order Comment: Order Date: 04/07/24 Order Info: [id number] - CMP Order Info: [id number] - LIPID Result Comment: Hemo lysis present, Results??could be affected. ?? Performed By: #### L 500.4050, L500.4100 #### [facility] [address] [place], [address] Sodium [Moles/Vol] 141 mmol/L Normal 133-145 [facility] Comment on above: Order Comment: Order Date: 04/07/24 Order Info: 0786- - CMP Order Info: [id number] - LIPID Performed By: #### L 500.4050, L500.4100 #### [facility] [address] [place], [address] T PROT 6.8 g/dL Normal 5.9-8.4 [facility] Comment on above: Order Comment: Order Date: 04/07/24 Order Info: 0786- - CMP Order Info: [id number] - LIPID Performed By: #### L 500.4050, L500.4100 #### [facility] [address] [place], [address] Urea nitrogen [Mass/Vol] 13 mg/dL Normal 4-19 [facility] Comment on above: Order Comment: Order Date: 04/07/24 Order Info: [id number] - CMP Order Info: [id number] - LIPID Performed By: #### L 500.4050, L500.4100 #### [facility] [address] [place], [address] GFR/1.73 sq M.predicted juan alberto g non-blacks MDRD (S/P/Bld) [Vol rate/Area]Ordered By: Tavon Hendrix on 10-04-2024 Estimated GFR (MDRD) Non-Af Amer 97 >60 [facility] Comment on above: mL/min/1.73m2 CKD-EP I Creatinine Equation (2020) HBV surface Ab Ql (S)Ordered By: Tavon Hendrix on 10-04-2024 Hepatitis B Surface Antibody Non-Reactive [facility] Comment on above: <8.5 mIU/mL: Non-Orma ctive8.5<= x <11.5 mIU/mL: Indeterminate>=11.5 mIU/mL: Reactive Non Reactive: Inconsistent with immunity less than <10 mIU/mL Reactive: Consistent with immunity greater than or equal to 10 mIU/mL HBV surface Ag Ql (S)Ordered By: Tavon Hendrix on 10-04-2024 Hepatitis B Surface Antigen Non-Reactive Nonreactive [facility] Comment on above: Reactive: Presumptiv e evidence of HBV. Repeatedly reactive samples must be confirmed using a neutralization test ([employer] HBsAg Confirmatory Test)Non-Reactive: HBsAg not detected; does not exclude the possibility of exposure to HBV Hemoglobin A1con 10-04-2024 HbA1c (Bld) [Mass fraction] 5.3 % Low <=5.6 [facility] Comment on above: Order Comment: Order Date: 04/07/24 Order Info: [id number] - A1C Performed By: #### L 501.9985 #### [facility] [place], [address] Hemoglobin A1c percentageOrd ered By: Tavon Hendrix on 10-04-2024 HbA1c (Bld) [Mass fraction] 5.3 % Low >5.7 [facility] Hepatitis C antibodyOrdered By: Tavon Hendrix on 10-04-2024 Hepatitis C Antibody Non-Reactive Nonreactive [facility] Comment on above: Reactive: Presumptiv e evidence of antibodies to HCV. Follow CDC recommendations for supplemental testing.Non-Reactive: Antibodies to HCV were not detected; does not exclude the possibility of exposure to HCVReactive Results are presumptive evidence of antibodies to HCV. Follow CDC recommendations for supplemental testing.Order confirmation testing: HCV Quant by PCR testing - HCVPCR #[id number] Non Reactive: < 0.8 Equivocal: >/= 0.8 to < 1.0 Reactive: >/= 1.0The CDC requires that a reactive/equivocal HCV antibody result be sent out for confirmation. HCV Quant by PCR testing. LDL calc ser/plasOrdered By: Tavon Hendrix on 10-04-2024 LDL Cholesterol, Calculated 178 mg/dL [facility] Comment on above: Wjjttoavpr=086-105 m g/dL & Higher Rbja=737 mg/dL or greater Laboratory - Chemistry and C hemistry - challengeOrdered By: Tavon Hendrix on 10-04-2024 AST [Catalytic activity/Vol] 38 U/L <38 [facility] Comment on above: Hemolysis present, R esults could be affected. Lipid Profileon 10-04-2024 CHOL:HDL 7.38 Normal [facility] Comment on above: Order Comment: Order Date: 04/07/24 Order Info: [id number] - CMP Order Info: [id number] - LIPID Performed By: #### L 500.4050, L500.4100 #### [facility] [address] [place], [address] Cholesterol in LDL [Mass/Vol] 178 mg/dL Normal [facility] Comment on above: Order Comment: Order Date: 04/07/24 Order Info: [id number] - CMP Order Info: [id number] - LIPID Result Comment: Bord awxzix=321-079 mg/dL Higher Vkaj=091 mg/dL or greater Performed By: #### L 500.4050, L500.4100 #### [facility] [address] [place], [address] Cholesterol in VLDL [Mass/Vol] 51 mg/dL High 5-40 [facility] Comment on above: Order Comment: Order Date: 04/07/24 Order Info: [id number] - CMP Order Info: [id number] - LIPID Performed By: #### L 500.4050, L500.4100 #### [facility] [address] [place], [address] Potassium (Unsp spec) [Mass/ Vol]Ordered By: Tavon Hendrix on 10-04-2024 Potassium [Moles/Vol] 4.4 mmol/L 3.3-5.1 [facility] Comment on above: Hemolysis present, R esults could be affected. Screening total cholesterol/ high density lipoprotein (HDL) cholesterol ratioOrdered By: Tavon Hendrix on 10-04-2024 Cholesterol.total/Choles terol in HDL [Mass ratio] 7.38 {ratio} [facility] Serum creatinine measurement (mass/volume)Ordered By: Tavno Hendrix on 10-04-2024 Creatinine [Mass/Vol] 1.03 mg/dL 0.70-1.20 [facility] Serum globulin measurementOr dered By: Tavon Hendrix on 10-04-2024 Globulin (S) [Mass/Vol] 2.6 g/dL 2.2-4.2 [facility] Serum glucose measurement (m ass/volume)Ordered By: Tavon Hendrix on 10-04-2024 Glucose [Mass/Vol] 107 mg/dL High 70-99 [facility] Serum or plasma alanine otto otransferase (ALT) measurementOrdered By: Tavon Hendrix on 10-04-2024 ALT [Catalytic activity/Vol] 62 U/L High <47 [facility] Serum or plasma albumin shayne urement (mass/volume)Ordered By: Tavon Hendrix on 10-04-2024 Albumin [Mass/Vol] 4.3 g/dL 3.5-5.0 [facility] Serum or plasma albumin/glob ulin mass ratioOrdered By: Tavon Hendrix on 10-04-2024 Albumin/Globulin [Mass ratio] 1.7 {ratio} 0.9-2.4 [facility] Serum or plasma alkaline saeid sphatase measurementOrdered By: Tavon Hendrix on 10-04-2024 ALP [Catalytic activity/Vol] 60 U/L 40-129 [facility] Serum or plasma calcium shayne urement (mass/volume)Ordered By: Tavon Hendrix on 10-04-2024 Calcium [Mass/Vol] 9.4 mg/dL 7.6-11.0 [facility] Serum or plasma cholesterol in HDL measurement (mass/volume)Ordered By: Tavon Hendrix on 10-04-2024 Cholesterol in HDL [Mass/Vol] 36 mg/dL Low [facility] Comment on above: National Cholesterol Education Program (NCEP) guidelines:<40 mg/dL: Low HDL-cholesterol (major risk factor for CHD)>= 60 mg/dL: High HDL-cholesterol (negative risk factor for CHD)HDL-cholesterol is affected by a number of factors, e.g. smoking, exercise, hormones, sex and age. Order Comment: Order Date: 04/07/24 Order Info: [id number] - [facility] Order Info: [id number] - LIPID Result Comment: Dian onal Cholesterol Education Program (NCEP) guidelines: <40 mg/dL: Low HDL-cholesterol (major risk factor for CHD) >= 60 mg/dL: High HDL-cholesterol (negative risk factor for CHD) HDL-cholesterol is affected by a number of factors, e.g. smoking, exercise, hormones, sex and age. Performed By: #### L 500.4050, L500.4100 #### [facility] [address] [place], [place], [id number] Serum or plasma cholesterol measurement (mass/volume)Ordered By: Tavon Hendrix on 10-04-2024 Cholesterol [Mass/Vol] 265 mg/dL High <=200 [facility] Comment on above: Cholesterol level, D esirable <200 mg/dLBorderline high cholesterol 200-239 mg/dLHigh cholesterol >=240 mg/dLRecommendations of the NCEP Adult Treatment Panel for the following risk-cutoff thresholds for the [place] population. Order Comment: Order Date: 04/07/24 Order Info: [id number] - [facility] Order Info: [id number] - LIPID Result Comment: Chol esterol level, Desirable <200 mg/dL Borderline high cholesterol 200-239 mg/dL High cholesterol >=240 mg/dL Recommendations of the NCEP Adult Treatment Panel for the following risk-cutoff thresholds for the [place] population. Performed By: #### L 500.4050, L500.4100 #### [facility] [address] [facility] [address] [place], [place], [id number] Serum or plasma urea nitroge n measurement (mass/volume)Ordered By: Tavon Hendrix on 10-04-2024 Urea nitrogen [Mass/Vol] 13 mg/dL 4-19 [facility] Sodium levelOrdered By: Tavon Hendrix on 10-04-2024 Sodium [Moles/Vol] 141 mmol/L 133-145 [facility] Total proteinOrdered By: Matt Hendrix on 10-04-2024 Protein [Mass/Vol] 6.8 g/dL 5.9-8.4 [facility] Triglycerides measurementOrd ered By: Tavon Hendrix on 10-04-2024 Triglyceride [Mass/Vol] 257 mg/dL High [facility] Comment on above: The drugs N-Acetylcy steine and Metamizole may falsely depress this assay. Normal range: <150 mg/dLBorderline High: 150-199 mg/dLHigh: 200-499 mg/dLVery High: >500 mg/dL Order Comment: Order Date: 04/07/24 Order Info: [id number] - CMP Order Info: [id number] - LIPID Result Comment: The drugs N-Acetylcysteine and Metamizole may falsely depress this assay. Normal range: <150 mg/dL Borderline High: 150-199 mg/dL High: 200-499 mg/dL Very High: >500 mg/dL Performed By: #### L 500.4050, L500.4100 #### [facility] [address] [place], [address] Basophil percentageOrdered B y: Tavon Hendrix on 08-19-2023 Bilirubin [Mass/Vol] 0.50 mg/dL 0.20-1.00 [facility] Comment on above: For patients on eltr ombopag therapy, use of Dimension Hodges TBIL is not recommended. Chloride [Moles/Vol] 107 mmol/L 98-107 [facility] Cholesterol [Mass/Vol] 198 mg/dL <200 [facility] Comment on above: <200 mg/dL Desirable 200-240 mg/dL Borderline >240 mg/dL High Risk Glucose [Mass/Vol] 110 mg/dL 74-106 [facility] Comment on above: Fasting Glucose resu lt from 100 to 125 mg/dL suggests IMPAIRED HOMEOSTASIS per A.D.A. criteria. Potassium [Moles/Vol] 4.2 mmol/L 3.5-5.1 [facility] Protein [Mass/Vol] 7.3 g/dL 6.4-8.2 [facility] Sodium [Moles/Vol] 137 mmol/L 136-145 [facility] Triglyceride [Mass/Vol] 160 mg/dL <199 [facility] Comment on above: The drugs N-Acetylcy steine and Metamizole may falsely depress this assay.Serum Triglycerides Reference Interval Normal <150 mg/dL Borderline high 150 - 199 mg/dL High 200 - 499 mg/dL Very High > or = 500 mg/dL Laboratory - Chemistry and C hemistry - challengeOrdered By: Tavon Hendrix on 08-19-2023 Albumin/Globulin [Mass ratio] 1.3 {ratio} 0.9-2.4 [facility] ALP [Catalytic activity/Vol] 56 U/L 45-117 [facility] ALT [Catalytic activity/Vol] 62 U/L 16-61 [facility] Cholesterol in HDL [Mass/Vol] 39 mg/dL >40 [facility] Comment on above: The drugs N-Acetylcy steine and Metamizole may falsely depress this assay. Reference Range HDL <40 mg/dL Low HDL Cholesterol HDL >or= 60 mg/dL High HDL Cholesterol Cholesterol in LDL [Mass/Vol] 127 mg/dL 0-130 [facility] CO2 [Moles/Vol] 29.0 mmol/L 21.0-32.0 [facility] Globulin (S) [Mass/Vol] 3.2 g/dL 2.2-4.2 [facility] Urea nitrogen/Creatinine [Mass ratio] 18.0 mg/mg 10-20 [facility] No Panel InformationOrdered By: Tavon Hendrix on 08-19-2023 Estimated GFR (MDRD) Amer 98 mL/min >60 [facility] Estimated GFR (MDRD) Non-Af Amer 81 mL/min >60 [facility] VLDL Cholesterol 32 mg/dL 5-40 [facility] Serum or plasma calcium shayne urement (mass/volume)Ordered By: Tavon Hendrix on 08-19-2023 Calcium [Mass/Vol] 9.3 mg/dL 8.5-10.1 [facility] Serum or plasma creatinine m easurement (mass/volume)Ordered By: Tavon Hendrix on 08-19-2023 Creatinine [Mass/Vol] 1.11 mg/dL 0.70-1.30 [facility] Comment on above: The validity of the calculated GFR & GFRAA in patients over 70 years has not been determined. Clinical correlation is essential. Serum or plasma urea nitroge n measurement (mass/volume)Ordered By: Tavon Hendrix on 08-19-2023 Urea nitrogen [Mass/Vol] 20 mg/dL 7-18 [facility] Thin prep Papanicolaou smear with manual screeningOrdered By: Tavon Hendrix on 08-19-2023 Thin prep Papanicolaou smear with manual screening 4.1 g/dL 3.2-5.0 [facility] Thin prep Papanicolaou smear with manual screening 26 U/L 15-37 [facility] Thin prep Papanicolaou smear with manual screening 1 5-15 [facility] Whole blood hemoglobin A1c/t otal hemoglobin ratio (mass fraction)Ordered By: Tavon Hendrix on 08-19-2023 HbA1c (Bld) [Mass fraction] 5.2 % 3.8-5.6 [facility] Comment on above: Normal < 5.7 % Predi abetic 5.7 - 6.4 % Diabetic >or= 6.5 % Please note range changes. [facility] SISSY STEEN ([id number]) 1990 Date Time Provider Department 04/22/23 URMILA ANDRADE [facility] During your visit today, we recorded the following information about you: Urmila Andrade APRN.CNP 04/22/2023 12:09 PM Signed Gonorrhea chlamydia test negative. Ramses Rapp 04/22/2023 12:49 PM Signed Patient given results and verbalized understanding of instructions given. Ramses Rapp Allergies As of Date: 04/22/2023 (No Known Allergies) Date Reviewed: 04/21/2023 Reviewed by: Urmila Andrade APRN.DISTRICT CUSTOMS DIRECTOR - Fully Assessed Reason for Visit: Results [95] Prescriptions as of 04/22/2023 - rosuvastatin (CRESTOR) 20 mg tablet Take 2 tablets by mouth every afternoon. Problem List As Of Date: 04/22/2023 (None) Encounter Status:Closed by RAMSES RAPP on 04/22/23 Normal [facility] CNPN Telephone ([facility]) ---- SISSY STEEN ([id number]) 1990 Date Time Provider Department 04/22/23 URMILA ANDRADE [facility] During your visit today, we recorded the following information about you: Urmila Andrade APRN.LEXIE 04/22/2023 11:17 AM Signed Syphilis HIV hepatitis test are negative. Gonorrhea chlamydia test still pending. Urmila Andrade APRN.Ramses Qureshi 04/22/2023 11:51 AM Signed Patient given results and verbalized understanding of instructions given. Ramses Rapp Allergies As of Date: 04/22/2023 (No Known Allergies) Date Reviewed: 04/21/2023 Reviewed by: Urmila Andrade APRN.DISTRICT CUSTOMS DIRECTOR - Fully Assessed Reason for Visit: Results [95] Prescriptions as of 04/22/2023 - rosuvastatin (CRESTOR) 20 mg tablet Take 2 tablets by mouth every afternoon. Problem List As Of Date: 04/22/2023 (None) Encounter Status:Closed by RAMSES RAPP on 04/22/23 Normal [facility] C. trachomatis+N. gonorrhoea e DNA KURTIS+probe Ql (Unsp spec)on 04-21-2023 C. trachomatis rRNA KURTIS+probe Ql (Unsp spec) Negative Normal Negative for Chlamydia trachomatis by amplificaton [facility] Comment on above: Order Comment: Speci men Type: URINE SPECIMEN Ordering Facility: [facility] Address: [address] [place] [address] Performed By: #### 3 6902-5 #### [facility] CLIA [id number] [address] [place] [address] [place] N. gonorrhoeae rRNA KURTIS+probe Ql (Unsp spec) Negative Normal Negative for Neisseria gonorrhoeae by amplification [facility] Comment on above: Order Comment: Speci men Type: URINE SPECIMEN Ordering Facility: [facility] Address: [address] [place] [address] Performed By: #### 3 6902-5 #### [facility] CLIA [id number] [address] [place] CNOVon 04-21-2023 CNOV Office Visit ([facility]) ---- SISSY STEEN ([id number]) 1990 M Date Time Provider Department 04/21/23 4:00 PM URMILA ANDRADE [facility] During your visit today, we recorded the following information about you: Temperature Pulse Respiration Blood pressure 97.8 degrees 73/minute 18/minute 145/96 Weight 127.3 kg Urmila Andrade APRN.DISTRICT CUSTOMS DIRECTOR 04/21/2023 4:16 PM Signed Subjective HPI Nontoxic-appearing male presents urgent care [...] of care. This note was generated using [employer] software. It may contain errors in wording, punctuation, or spelling. Urmila Andrade APRN.DISTRICT CUSTOMS DIRECTOR Allergies As of Date: 04/21/2023 (No Known Allergies) Date Reviewed: 04/21/2023 Reviewed by: Urmila Andrade APRN.DISTRICT CUSTOMS DIRECTOR - Fully Assessed Reason for Visit: STD Testing [Other] Cmt: Requesting testing to be safe, new sex partner Primary Visit Diagnosis:Screening for STD (sexually transmitted disease) [Z11.3] Order(s):GONORRHEA/ CHLAMYDIA NAAT [SQGCCT] Order #: [id number]. #:[id number] SYPHILIS TOTAL W/REFLEX [SQSYPHTX] Order #: [id number] FUTURE HIV 1 2 COMBO(AG/AB),WITH REFLEX TO DIFFERENTIATION [SQHIV12] Order #: [id number] FUTURE HEPATITIS C ANTIBODY IA WITH CONFIRMATION [EOAQQZ0U] Order #: [id number] FUTURE HEP B SURF AG SCRN [SQHBSAG] Order #: [id number] FUTURE Prescriptions as of 04/21/2023 - rosuvastatin (CRESTOR) 20 mg tablet Take 2 tablets by mouth every afternoon. Problem List As Of Date: 04/21/2023 (None) Level of Service: OFFICE/OUTPATIENT [facility] 15-29 MINUTES [29495] Encounter Status:Closed by URMILA ANDRADE on 04/21/23 Normal [facility] HBV surface Ag Ser Qlon 04-12 HBV surface Ag Ql (S) Negative Normal Negative [facility] Comment on above: Order Comment: Speci men Type: BLOOD SPECIMEN Ordering Facility: [facility] Address: [address] [place] [address] Performed By: #### 5 195-3, 93030-7, 65888-7 #### [facility] CLIA [id number] [address] [facility] [place] [address] [place] HCV Ab Ser Qlon 04-21-2023 HCV Ab Ql (S) Negative Normal Negative [facility] Comment on above: Order Comment: Speci men Type: BLOOD SPECIMEN Ordering Facility: [facility] Address: [address] [place] [address] Result Comment: The result suggests no evidence of active infection with Hepatitis C virus. Should recent infection be suspected, repeat testing may be considered 4-6 weeks after this draw. Performed By: #### 1 6128-1 #### [facility] CLIA [id number] [address] [place] [address] [place] HIV 1+2 Ab IA Qlon 3 HIV 1 and 2 Ab IA.rapid Nom Normal [facility] Comment on above: Order Comment: Speci men Type: BLOOD SPECIMEN Ordering Facility: [facility] Address: [address] [place] [address] Result Comment: Test not indicated. Performed By: #### 5 195-3, 30838-3, 40474-2 #### [facility] CLIA [id number] [address] [place] [address] [place] HIV 1+2 Ab+HIV1 p24 Ag IA Ql Non-Reactive Normal Nonreactive [facility] Comment on above: Order Comment: Speci shanda Type: BLOOD SPECIMEN Ordering Facility: [facility] Address: [address] [place] [address] Performed By: #### 5 195-3, 23575-1, 08223-3 #### [facility] CLIA [id number] [address] [place] [address] [place] HIV immunoassay testing algorithm interpretation (S/P/Bld) [Interp] Normal [facility] Comment on above: Order Comment: Speci shanda Type: BLOOD SPECIMEN Ordering Facility: [facility] Address: [address] [place] [address] Result Comment: No e vidence of HIV-1 or HIV-2 infection. Should recent infection be suspected, repeat testing may be considered 2-3 weeks after this draw. [place] Rev. Code 3701.243(E): This information has been disclosed to you from confidential records protected from disclosure by state law. ???You shall make no further disclosure of this information without the specific, written, and informed release of the individual to whom it pertains or as otherwise permitted by state law. A general authorization for the release of medical or other information is not sufficient for the purpose of the release of HIV test results or diagnoses. Performed By: #### 5 195-3, 38670-1, 62287-9 #### [facility] CLIA [id number] [address] [place] [address] [place] Reagin and Treponema pallidu m IgG and IgM [Interp]on 04-21-2023 T. pallidum IgG+IgM IA Ql (S) Non-Reactive Normal Nonreactive [facility] Comment on above: Order Comment: Speci men Type: BLOOD SPECIMEN Ordering Facility: [facility] Address: [address] [place] [address] Performed By: #### 5 195-3, 26474-2, 57696-8 #### [facility] CLIA [id number] [address] [place] [address] [place] Reagin+T pallidum IgG+IgM Se rPl-Impon 04-21-2023 Reagin and Treponema pallidum IgG and IgM [Interp] Cannot exclude recent Treponemal infection if specimen collected within 7-10 days after appearance of suspect lesions or 2-3 weeks after an exposure. Clinical correlation is required. Normal [facility] Comment on above: Order Comment: Speci men Type: BLOOD SPECIMEN Ordering Facility: [facility] Address: [address] [place] [address] Performed By: #### 5 195-3, 44751-5, 50899-7 #### [facility] CLIA [id number] [address] [place], [place] [id number] [place] Basophil percentageOrdered B y: Tavon Hendrix on 02-13-2023 Bilirubin [Mass/Vol] 0.50 mg/dL 0.20-1.00 [facility] Comment on above: For patients on eltr ombopag therapy, use of Dimension Hodges TBIL is not recommended. Chloride [Moles/Vol] 106 mmol/L 98-107 [facility] Cholesterol [Mass/Vol] 223 mg/dL <200 [facility] Comment on above: <200 mg/dL Desirable 200-240 mg/dL Borderline >240 mg/dL High Risk Glucose [Mass/Vol] 114 mg/dL 74-106 [facility] Comment on above: Fasting Glucose resu lt from 100 to 125 mg/dL suggests IMPAIRED HOMEOSTASIS per A.D.A. criteria. Potassium [Moles/Vol] 4.3 mmol/L 3.5-5.1 [facility] Protein [Mass/Vol] 7.6 g/dL 6.4-8.2 [facility] Sodium [Moles/Vol] 138 mmol/L 136-145 [facility] Triglyceride [Mass/Vol] 234 mg/dL <199 [facility] Comment on above: The drugs N-Acetylcy steine and Metamizole may falsely depress this assay.Serum Triglycerides Reference Interval Normal <150 mg/dL Borderline high 150 - 199 mg/dL High 200 - 499 mg/dL Very High > or = 500 mg/dL Laboratory - Chemistry and C hemistry - challengeOrdered By: Tavon Hendrix on 02-13-2023 ALP [Catalytic activity/Vol] 64 U/L 45-117 [facility] ALT [Catalytic activity/Vol] 59 U/L 16-61 [facility] CO2 [Moles/Vol] 28.0 mmol/L 21.0-32.0 [facility] Globulin (S) [Mass/Vol] 3.7 g/dL 2.2-4.2 [facility] Urea nitrogen/Creatinine [Mass ratio] 8.6 mg/mg 10-20 [facility] No Panel InformationOrdered By: Tavon Hendrix on 02-13-2023 Estimated GFR (MDRD) Amer 93 mL/min >60 [facility] Comment on above: GFR Calc Estimated GFR (MDRD) Non-Af Amer 76 mL/min >60 [facility] Comment on above: Non- GFR Calc Serum or plasma albumin shayne urement (mass/volume)Ordered By: Tavon Hendrix on 02-13-2023 Albumin [Mass/Vol] 3.9 g/dL 3.2-5.0 [facility] Serum or plasma albumin/glob ulin mass ratioOrdered By: Tavon Hendrix on 02-13-2023 Albumin/Globulin [Mass ratio] 1.1 {ratio} 0.9-2.4 [facility] Serum or plasma calcium shayne urement (mass/volume)Ordered By: Tavon Hendrix on 02-13-2023 Calcium [Mass/Vol] 9.1 mg/dL 8.5-10.1 [facility] Serum or plasma cholesterol in HDL measurement (mass/volume)Ordered By: Tavon Hendrix on 02-13-2023 Cholesterol in HDL [Mass/Vol] 31 mg/dL >40 [facility] Comment on above: The drugs N-Acetylcy steine and Metamizole may falsely depress this assay. Reference Range HDL <40 mg/dL Low HDL Cholesterol HDL >or= 60 mg/dL High HDL Cholesterol Serum or plasma cholesterol in VLDL measurement (mass/volume)Ordered By: Tavon Hendrix on 02-13-2023 Cholesterol in VLDL [Mass/Vol] 47 mg/dL 5-40 [facility] Serum or plasma creatinine m easurement (mass/volume)Ordered By: Tavon Hendrix on 02-13-2023 Creatinine [Mass/Vol] 1.16 mg/dL 0.70-1.30 [facility] Comment on above: The validity of the calculated GFR & GFRAA in patients over 70 years has not been determined. Clinical correlation is essential. Serum or plasma low density lipoprotein (LDL) cholesterol measurement (mass/volume)Ordered By: Tavon Hendrix on 02-13-2023 Cholesterol in LDL [Mass/Vol] 145 mg/dL 0-130 [facility] Serum or plasma urea nitroge n measurement (mass/volume)Ordered By: Tavon Hendrix on 02-13-2023 Urea nitrogen [Mass/Vol] 10 mg/dL 7-18 [facility] Thin prep Papanicolaou smear with manual screeningOrdered By: Tavon Hendrix on 02-13-2023 Thin prep Papanicolaou smear with manual screening 23 U/L 15-37 [facility] Thin prep Papanicolaou smear with manual screening 4 5-15 [facility] Absolute lymphocyte countOrd ered By: Dr. Hendrix on 08-18-2022 Lymphocytes Auto (Unsp spec) [#/Vol] 3.19 10*3/uL 0.83-4.51 [facility] Basophil percentageOrdered B y: Dr. Hendrix on 08-18-2022 Basophils/100 WBC (Bld) 0.5 % 0-1 [facility] Bilirubin [Mass/Vol] 0.70 mg/dL 0.20-1.00 [facility] Comment on above: For patients on eltr ombopag therapy, use of Dimension Hodges TBIL is not recommended. Chloride [Moles/Vol] 105 mmol/L 98-107 [facility] Cholesterol [Mass/Vol] 266 mg/dL <200 [facility] Comment on above: <200 mg/dL Desirable 200-240 mg/dL Borderline >240 mg/dL High Risk Eosinophils/100 WBC (Bld) 3.5 % 0-5 [facility] Glucose [Mass/Vol] 96 mg/dL 74-106 [facility] Neutrophils (Bld) [#/Vol] 4.1 10*3/uL 2.0-7.7 [facility] Neutrophils/100 WBC (Bld) 49.1 % 47-70 [facility] Potassium [Moles/Vol] 4.0 mmol/L 3.5-5.1 [facility] Protein [Mass/Vol] 7.2 g/dL 6.4-8.2 [facility] Sodium [Moles/Vol] 140 mmol/L 136-145 [facility] Triglyceride [Mass/Vol] 190 mg/dL <199 [facility] Comment on above: The drugs N-Acetylcy steine and Metamizole may falsely depress this assay.Serum Triglycerides Reference Interval Normal <150 mg/dL Borderline high 150 - 199 mg/dL High 200 - 499 mg/dL Very High > or = 500 mg/dL WBC (Bld) [#/Vol] 8.3 10*3/uL 4.4-11.0 [facility] Blood erythrocytes count (nu mber/volume)Ordered By: Dr. Hendrix on 08-18-2022 RBC (Bld) [#/Vol] 5.21 10*6/uL 4.6-6.2 [facility] Blood hemoglobin measurement (mass/volume)Ordered By: Dr. Hendrix on 08-18-2022 Hemoglobin (Bld) [Mass/Vol] 15.5 g/dL 13.0-16.5 [facility] Blood lymphocytes/100 leukoc ytesOrdered By: Dr. Hendrix on 08-18-2022 Lymphocytes/100 WBC (Bld) 38.7 % 19-41 [facility] Blood monocytes/100 leukocyt esOrdered By: Dr. Hendrix on 08-18-2022 Monocytes/100 WBC (Bld) 8.0 % 0-10 [facility] Blood platelet mean volumeOr dered By: Dr. Hendrix on 08-18-2022 Platelet mean volume (Bld) [Entitic vol] 10.2 fL 6.2-12.0 [facility] Determination of erythrocyte mean corpuscular volume (MCV)Ordered By: Dr. Hendrix on 08-18-2022 MCV (RBC) [Entitic vol] 86.9 fL 80-94 [facility] Hematocrit Auto (Bld) [Volum e fraction]Ordered By: Dr. Hendrix on 08-18-2022 Hematocrit (Bld) [Volume fraction] 45.3 % 40-54 [facility] - Chemistry and C hemistry - challengeOrdered By: Dr. Hendrix on 08-18-2022 ALP [Catalytic activity/Vol] 56 U/L 45-117 [facility] ALT [Catalytic activity/Vol] 49 U/L 16-61 [facility] CO2 [Moles/Vol] 28.0 mmol/L 21.0-32.0 [facility] Globulin (S) [Mass/Vol] 3.4 g/dL 2.2-4.2 [facility] Urea nitrogen/Creatinine [Mass ratio] 18.1 mg/mg 10-20 [facility] - Hematology and Cell countsOrdered By: Dr. Hendrix on 08-18-2022 Erythrocyte distribution width (RBC) [Entitic vol] 39.8 fL 35.1-43.9 [facility] Erythrocyte distribution width (RBC) [Ratio] 12.7 % 11.6-14.6 [facility] Immature granulocytes/100 WBC (Bld) 0.200 % 0.0-0.9 [facility] Comment on above: IG% - Immature Granu locytes (promyelocytes, myelocytes and metamyelocytes) > 1% indicates that a LEFT SHIFT is Present. MCH (RBC) [Entitic mass] 29.8 pg 27.0-32.0 [facility] Nucleated RBC/100 WBC (Bld) [Ratio] 0 % 0-5 [facility] MCHC Auto (RBC) [Mass/Vol]Or dered By: Dr. Hendrix on 08-18-2022 MCHC (RBC) [Mass/Vol] 34.2 g/dL 32-36 [facility] No Panel InformationOrdered By: Dr. Hendrix on 08-18-2022 Estimated GFR (MDRD) Amer 104 mL/min >60 [facility] Comment on above: GFR Calc Estimated GFR (MDRD) Non-Af Amer 86 mL/min >60 [facility] Comment on above: Non- GFR Calc Thyroid Stimulating Hormone (TSH) 0.82 uIU/mL 0.358-3.74 [facility] Platelets bldOrdered By: Dr. Hendrix on 08-18-2022 Platelets (Bld) [#/Vol] 246 10*3/uL 150-450 [facility] Serum or plasma albumin shayne urement (mass/volume)Ordered By: Dr. Hendrix on 08-18-2022 Albumin [Mass/Vol] 3.8 g/dL 3.2-5.0 [facility] Serum or plasma albumin/glob ulin mass ratioOrdered By: Dr. Hendrix on 08-18-2022 Albumin/Globulin [Mass ratio] 1.1 {ratio} 0.9-2.4 [facility] Serum or plasma calcium sahyne urement (mass/volume)Ordered By: Dr. Hendrix on 08-18-2022 Calcium [Mass/Vol] 9.0 mg/dL 8.5-10.1 [facility] Serum or plasma cholesterol in HDL measurement (mass/volume)Ordered By: Dr. Hendrix on 08-18-2022 Cholesterol in HDL [Mass/Vol] 37 mg/dL >40 [facility] Comment on above: The drugs N-Acetylcy steine and Metamizole may falsely depress this assay. Reference Range HDL <40 mg/dL Low HDL Cholesterol HDL >or= 60 mg/dL High HDL Cholesterol Serum or plasma cholesterol in VLDL measurement (mass/volume)Ordered By: Dr. Hendrix on 08-18-2022 Cholesterol in VLDL [Mass/Vol] 38 mg/dL 5-40 [facility] Serum or plasma creatinine m easurement (mass/volume)Ordered By: Dr. Hendrix on 08-18-2022 Creatinine [Mass/Vol] 1.05 mg/dL 0.70-1.30 [facility] Comment on above: The validity of the calculated GFR & GFRAA in patients over 70 years has not been determined. Clinical correlation is essential. Serum or plasma low density lipoprotein (LDL) cholesterol measurement (mass/volume)Ordered By: Dr. Hendrix on 08-18-2022 Cholesterol in LDL [Mass/Vol] 191 mg/dL 0-130 [facility] Serum or plasma urea nitroge n measurement (mass/volume)Ordered By: Dr. Hendrix on 08-18-2022 Urea nitrogen [Mass/Vol] 19 mg/dL 7-18 [facility] Thin prep Papanicolaou smear with manual screeningOrdered By: Dr. Hendrix on 08-18-2022 Thin prep Papanicolaou smear with manual screening 22 U/L 15-37 [facility] Thin prep Papanicolaou smear with manual screening 7 5-15 [facility] Vital Signs Date Time Vital Sign Value Performing Clinician Faci lity 08-29-2022 13:51-0500 Body height 182.[address] Tavon Hendrix Work Phone: [facility] 08-29-2022 13:51-0500 Body mass index (BMI) [Ratio] 36.3 kg/m2 Dr. Tavon Hendrix Work Phone: [facility] 08-29-2022 13:51-0500 Body weight 121.[address] Tavon Hendrix Work Phone: [facility] 08-29-2022 13:51-0500 Diastolic blood pressure 84 mm[Hg] Dr. Tavon Hendrix Work Phone: [facility] 08-29-2022 13:51-0500 Heart rate 64 /min Dr. Tavon Hendrix Work Phone: [facility] 08-29-2022 13:51-0500 Respiratory rate 16 /min Dr. Tavon Hendrix Work Phone: [facility] 08-29-2022 13:51-0500 Systolic blood pressure 128 mm[Hg] Dr. Tavon Hendrix Work Phone: [facility] Encounters Encounter Date Encounter Type Care Provider Facility Start: 06-02-2025 ambulatory Tavon Hendrix Facilit y:[facility] Start: 03-16-2025 End: 03-16-[address] Tavon Hendrix MD Work Phone: -Laboratory Start: 03-16-2025 End: 03-16-[address] Tavon Hendrix MD -Laboratory Work Phone: Start: 03-16-2025 End: 03-16-2025 ambulatory Tavon Hendrix Facility:[facility] Start: 12-01-2024 End: 12-01-2024 ambulatory Tavon Hendrix [place]: 10-04-2024 End: 10-04-[address] Tavon Hendrix MD Work Phone: [facility] Work Phone: Start: 10-04-2024 End: 10-04-[address] Tavon Hendrix MD -Laboratory Work Phone: Start: 10-04-2024 End: 10-04-2024 ambulatory Tavon Hendrix Facility:[facility] Start: 08-19-2023 End: 08-19-2023 ambulatory [facility] Work Phone: Start: 08-19-2023 End: 08-19-2023 Patient encounter procedure [facility] Work Phone: Start: 05-22-2023 End: 05-22-2023 ambulatory [facility] Work Phone: Start: 05-22-2023 End: 05-22-2023 Patient encounter procedure [facility] Work Phone: Start: 04-22-2023 Telephone encounter Urmila laguerre [employer] DIRECT[employer] Work Phone: [facility] Comment on above: Results Start: 04-21-2023 End: 04-22-2023 ambulatory URMILA ANDRADE Facility:[facility] Start: 02-13-2023 End: 02-13-2023 ambulatory [facility] Work Phone: Start: 02-13-2023 End: 02-13-2023 Patient encounter procedure [facility], [place] Work Phone: Start: 09-26-2022 Non-patient / Non-visit Dr. Sylvie Hendrix Work Phone: [facility] Start: 09-26-2022 End: 09-26-[address] Tavon Hendrix Work Phone: [facility] Work Phone: Start: 09-26-2022 End: 09-26-[address] Tavon Hendrix Work Phone: [facility] Start: 08-29-2022 End: 08-29-[address] Tavon Hendrix Work Phone: [facility] Start: 08-21-2022 Non-patient / Non-visit Dr. Sylvie Hendrix Work Phone: [facility] Start: 08-18-2022 End: 08-18-[address] Tavon Hendrix Work Phone: [facility] Work Phone: Start: 08-18-2022 End: 08-18-[address] Tavon Hendrix Work Phone: [facility] Procedures Date Procedure Procedure Detail Performing Clinician Start: 09-04-2025 Hep[address] C antibody measurement Dr. Tavon Hendrix MD Work Phone: Comment on above: Reactive: Presumptiv e evidence of antibodies to HCV. Follow CDC recommendations for supplemental testing.Non-Reactive: Antibodies to HCV were not detected; does not exclude the possibility of exposure to HCVReactive Results are presumptive evidence of antibodies to HCV. Follow CDC recommendations for supplemental testing.Order confirmation testing: HCV Quant by PCR testing - HCVPCR #[id number] Non Reactive: < 0.8 Equivocal: >/= 0.8 to < 1.0 Reactive: >/= 1.0The CDC requires that a reactive/equivocal HCV antibody result be sent out for confirmation. HCV Quant by PCR testing. Plan of Treatment Date Care Activity Detail Author Start: 03-13-2023 Covid-19 Vaccine () Covid-19 Vaccine () [facility] Start: 03-13-2023 Influenza vaccination Influenza Vacc ine (#1) [facility] Start: 07-13-2022 Depression Assessment Depression Ass essment [facility] Start: 10-04-2007 Urine microalbumin profile DTa P,Tdap,Td Vaccine (1 - Tdap) [facility] Start: 1990 Hepatitis B Vaccine (1 of 3 - 3-dose series) Hepatitis B Vaccine (1 of 3 - 3-dose series) [facility] Immunizations Immunization Date Immunization Notes Care Provider Partha phillips 07-27-2009 influenza virus vaccine, unspecified formulation Urmila Andrade APRN.CNP Work Phone: [facility] Payers Date Payer Category Payer Private Health Insurance [id number] 2024 Self-pay 2022 Unknown [id number] 2022 Unknown [employer] PPO OOS [id number] 2022-Present [phone] [address] [place] [address] PPO [id number] Private Health Insurance [facility] [employer] EHP PLUS [id number] Private Health Insurance [id number] Unknown HANNAH GREGORY [facility] [id number] Unknown [id number] Unknown [id number] Unknown [id number] Unknown [id number] Social History Date Type Detail Facility Start: 08-21-2022 End: 08-29-2022 Tobacco smoking status MTIS Unknown if ever smoked [facility] Start: 1990 Sex Assigned At Male [facility] Start: 04-21-2023 End: 10-02-2023 Tobacco smoking status NHIS Never smoked tobacco [facility] Start: 04-21-2023 Tobacco use and exposure Smokeless tobacco non-user [facility] Start: 04-21-2023 History of [address] function [facility] Start: 04-21-2023 Tobacco use panel [facility] Start: 04-21-2023 Gender identity Identifies as male gender (finding) [facility] Start: 04-21-2023 Sexual orientation Heterosexual (fin ding) [facility] Start: 10-08-2024 Sex Male (finding) [facility] Note 04-22-2023 Telephone Encounter - Ramses Rapp - 04/22/2023 12:49 PM EDTTelephone Encounter - Urmila Andrade APRN.CNP - 04/22/2023 12:09 PM EDT Note Date & Type Note Facility 04-22-2023 Miscellaneous Notes Formattin g of this note might be different from the original. Patient given results and verbalized understanding of instructions given. Ramses Rapp Gonorrhea chlamydia test negative. documented in this encounter [facility] Note 04-22-2023 Telephone Encounter - Ramses Rapp - 04/22/2023 11:50 AM EDTTelephone Encounter - Urmila Andrade APRN.CNP - 04/22/2023 11:16 AM EDT Note Date & Type Note Facility 04-22-2023 Miscellaneous Notes Formattin g of this note might be different from the original. Patient given results and verbalized understanding of instructions given. Ramses Rapp Syphilis HIV hepatitis test are negative. Gonorrhea chlamydia test still pending. Urmila Andrade APRN.CNP documented in this encounter [facility] Progress note 04-21-2023 Note Date & Type Note Facility 04-21-2023 Note HNO ID: [id number] Author: Urmila Andrade APRN.CNP Service: ? Author [...] of care. This note was generated using [employer] software. It may contain errors in wording, punctuation, or spelling. Urmila Andrade APRN.[facility] Evaluation note Note Date & Type Note Facility Evaluation note No assessment information availa ble [facility] Work Phone: Evaluation note Note Date & Type Note Facility Evaluation note Diagnosis Onset Date Hyperlipemia acute VSD (ventricular septal defect) acute [facility] Work Phone: Reason for referral (narrative) Note Date & Type Note Facility Reason for referral (narrative) No reason for referral information available [facility] Work Phone: Chief Complaint and Reason for Visit Chief Complaint EORDER Amb Documentation Chief Complaint EORDER Amb Documentation FAM HX OF CARDIAC DISEASE (RACHID) CONGENITAL HEART DISEASE Reason for Visit Hyperlipemia VSD (ventricular septal defect) Chief Complaint EORDER Chief Complaint EORDER E ORDER Chief Complaint E ORDER Chief Complaint Admit Date INT LABS October 04, 2024 6:5 7am Chief Complaint Admit Date E ORDERS March 16, 2025 8:38am Family History No Family History Records Found Relationship Condition Age at Onset Recorded Date/T gaetano Not Specified Heart disease Unknown father Coronary artery disease 51 grandfather Coronary artery disease Unknown Hypertension Unknown grandmother Cardiac disease Unknown Summary Purpose Advance Directives No Advanced Directives Records FoundNo Advanced Directives Records Found Additional Source Comments Care Teams (unrecognized sec tion and content) Team Status: Active Member Role Status Dates Dr. Tavon Ambriz MD Family Provider Active Dr. Tavon Hendrix MD Primary Care Provider Active Team Status: Active Member Role Status Dates Dr. Tavon Hendrix MD Primary Care Provider Active Phyllis Mendoza Attending Provider Active Team Status: Inactive Member Role Status Dates Dr. Tavon Hendrix MD Primary Care Pr ovider, Attending Provider, Referring Provider Active Team Status: Inactive Member Role Status Dates Dr. Tavon Hendrix MD Primary Care Provider, Referr ing Provider Active Dr. Quentin Montano MD Attending Provider Active Team Status: Active Member Role Status Dates Dr. Tavon Hendrix MD Primary Care Provider Active Dr. Quentin Montano MD Attending Provider Active Team Status: Inactive Member Role Status Dates Dr. Tavon Hendrix MD Primary Care Provider Active Dr. Quentin Montano MD Attending Provider Active Team Status: Inactive Member Role Status Dates Dr. Tavon Hendrix MD Primary Care Provider Active Start: October 04, 2024 End: October 04, 2024 Dr. Tavon Hendrix MD Attending Provider Active Start: October 04, 2024 End: October 04, 2024 Dr. Tavon Hendrix MD Referring Provider Active Start: October 04, 2024 End: October 04, 2024 Team Status: Active Member Role/Relationship Status Dates Dr. Tavon Hendrix MD Primary care physician Active Team Status: Inactive Member Role/Relationship Status Dates Dr. Tavon Hendrix MD Primary care physician Active Start: March 16, 2025 End: March 16, 2025 Dr. Tavon Hendrix MD Attending physician Active Start: March 16, 2025 End: March 16, 2025 Dr. Tavon Hendrix MD Referring Provider Active Start: March 16, 2025 End: March 16, 2025 Goals (unrecognized section and content) Goals may be documented in a n alternate sectionGoals may be documented in an alternate sectionGoals may be documented in an alternate sectionGoals may be documented in an alternate sectionGoals may be documented in an alternate sectionGoals may be documented in an alternate sectionGoals may be documented in an alternate section Source Comments (unrecognize d section and content) In the event this informatio n is protected by the Federal Confidentiality of Alcohol and Drug Abuse Patient Records regulations: The Federal rules restrict any use of the information to criminally investigate or prosecute any alcohol or drug abuse patient.[facility] the event this information is protected by the Federal Confidentiality of Alcohol and Drug Abuse Patient Records regulations: The Federal rules restrict any use of the information to criminally investigate or prosecute any alcohol or drug abuse patient.[facility] Reason for Visit (unrecogniz ed section and content) Reason Comments Results (unrecognized sect ion and content) No Status Records FoundNo Status Records Found INFORMATION SOURCE (unrecogn ized section and content) DATE CREATED AUTHOR 04/23/2023 [facility] DATE CREATED AUTHOR AUTHOR'S ORGANIZ ATION 05/20/2025 [facility] FOR RECORDS PERTAINING TO PATIENTS WHO ARE [...] BE BASED ON THE PRIMARY CLINICAL RECORDS. [facility]. provides no warranty or guarantee of the accuracy or completeness of information in this document.
== END | disposition home or self-care (01) ==
LOC: US 07:17
PROVIDERS: PCP Family Medicine; Referring Provider Family Medicine; Visit Provider Family Medicine
DX: R79.89 Other specified abnormal findings of blood chemistry (principal)
CPT/HCPCS: 76705; 76981